=== PATIENT | male | born 1975 | race African-American/Black ===

== ENCOUNTER → 2016-03-15 | Outpatient (CLI) | payer OTHER ==
[2016-03-15 14:49] LABS: ANION GAP 12 (5-19); BLOOD UREA NITROGEN 18 mg/dL (7-20); CARBON DIOXIDE 28 mmol/L (22-30); CHLORIDE 102 mmol/L (98-107); CREATININE RESULT 1.04 mg/dL (0.52-1.25); GLUCOSE 82 mg/dL (75-110); POTASSIUM 4.1 mmol/L (3.6-5.0); SODIUM 142.4 mmol/L (137-145)
== END ==
LOC: CCC 13:47
DX: I10 Essential (primary) hypertension (principal)
CPT/HCPCS: 36415; 80048

== ENCOUNTER 2016-12-05 07:10 | Emergency (ER) | payer SELFPAY ==
[2016-12-05] MEDS ORDERED: PROCHLORPERAZINE EDISYLATE INJ 10 MG/2 ML VIAL IV ONE (08:14)
[2016-12-05] MEDS ORDERED: NORMAL SALINE 1000 ML 1,000 ML IV ONE (08:14)
[2016-12-05] MEDS ORDERED: ONDANSETRON HCL INJ/PF 4 MG/2 ML SDV IV ONE (08:14)
[2016-12-05] MEDS ORDERED: CLONIDINE HCL 0.2 MG TABLET PO ONE (08:16)
[2016-12-05 08:58] LABS: ANION GAP 16 (5-19); BLOOD UREA NITROGEN 12 mg/dL (7-20); CALCIUM 9.3 mg/dL (8.4-10.2); CARBON DIOXIDE 22 mmol/L (22-30); CHLORIDE 106 mmol/L (98-107); GLUCOSE 107 mg/dL (75-110); POTASSIUM 3.8 mmol/L (3.6-5.0); SODIUM 144.4 mmol/L (137-145)
--- NOTE | 2016-12-05 10:12 | ER Document Report ---
ED General - General Chief Complaint: Headache Stated Complaint: HEADACHE Time Seen by Provider: 12/05/16 08:03 TRAVEL OUTSIDE OF THE [place] IN LAST 30 DAYS: No - HPI Patient complains to provider of: Headache hypertension Notes: Patient coming in for evaluation of hypertension and headache. States hypertension ongoing for greater than a few weeks also headache ongoing for greater than a few weeks less than the left side of his head. Patient states does not take his hypertensive medications because they make him sleepy. Patient states he is on clonidine amlodipine and hydrochlorothiazide. Patient states he does not like taking pills as well. Denies any trauma denies any fevers chills nausea vomiting. Denies any significant medical issues. Patient states he does have his blood pressure medications at home. - Related Data Allergies/Adverse Reactions: No Known Allergies Allergy (Verified 12/05/16 07:19) Home Medications: Current Home Medications Hydrochlorothiazide 25 mg PO DAILY 12/05/16 [History] Past Medical History - Social History Smoking Status: Current Every Day Smoker Chew tobacco use (# tins/day): No Frequency of alcohol use: Heavy Family History: Reviewed & Not Pertinent Patient has suicidal ideation: No Patient has homicidal ideation: No - Past Medical History Cardiac Medical History: Reports: Hx Hypertension Renal/ Medical History: Denies: Hx Peritoneal Dialysis - Immunizations Immunizations up to date: Yes Hx Diphtheria, Pertussis, Tetanus Vaccination: Yes Review of Systems - Review of Systems Constitutional: Other - Hypertension headache EENT: No symptoms reported Cardiovascular: No symptoms reported Respiratory: No symptoms reported Gastrointestinal: No symptoms reported Genitourinary: No symptoms reported Male Genitourinary: No symptoms reported Musculoskeletal: No symptoms reported Skin: No symptoms reported Hematologic/Lymphatic: No symptoms reported Neurological/Psychological: No symptoms reported Physical Exam - Vital signs Vitals: Temp Pulse Resp BP Pulse Ox 98.4 F 101 H 16 175/123 H 99 12/05/16 07:17 12/05/16 07:17 12/05/16 07:17 12/05/16 07:17 12/05/16 07:17 Interpretation: Hypertensive - General General appearance: Appears well, Alert - HEENT Head: Normocephalic, Atraumatic Eyes: Normal Pupils: PERRL - Respiratory Respiratory status: No respiratory distress Chest status: Nontender Breath sounds: Normal Chest palpation: Normal - Cardiovascular Rhythm: Regular Heart sounds: Normal auscultation Murmur: No - Abdominal Inspection: Normal Distension: No distension Bowel sounds: Normal Tenderness: Nontender Organomegaly: No organomegaly - Back Back: Normal, Nontender - Extremities General upper extremity: Normal inspection, Nontender, Normal color, Normal ROM , Normal temperature General lower extremity: Normal inspection, Nontender, Normal color, Normal ROM , Normal temperature, Normal weight bearing. 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 The patient is neurologically intact. Given the extremely low risk of these diagnoses further testing and evaluation for these possibilities does not appear to be indicated at this time. The patient has been instructed to return if the symptoms worsen or change in any way.. Patient was given his first dose of clonidine here. Improvement of his blood pressure. Patient was given Compazine and Zofran with improvement of his headache. Patient was educated about hypertension controlled to avoid stroke dialysis renal failure heart attack. Patient states an understanding states he will start taking his medication when he returns home. We will give Compazine for headache and nausea control. - Vital Signs Vital signs: Temp Pulse Resp BP Pulse Ox 98.4 F 103 H 16 154/106 H 97 12/05/16 08:06 12/05/16 08:06 12/05/16 10:30 12/05/16 10:30 12/05/16 10:30 - Laboratory Result Diagrams: 12/05/16 08:35 Discharge - Discharge Clinical Impression: Headache Qualifiers: Headache type: unspecified Headache chronicity pattern: unspecified pattern Intractability: not intractable Qualified Code(s): R51 - Headache Condition: Good Disposition: HOME, SELF-CARE Instructions: Headache ([facility]), High Blood Pressure, Requiring Treatment ([facility]) Additional Instructions: Please take your blood pressure medication at home to prevent serious disease. Uncontrolled hypertension will lead to stroke heart attack and kidney failure which would require dialysis. Please follow-up with your primary care physician. I will give you a medication called Compazine that will help out with your headaches he may also take Tylenol and Motrin. Prescriptions: Prochlorperazine Maleate [Compazine] 5 mg PO Q6 #20 tablet Forms: Return to Work
[2016-12-05 10:38] VITALS: BP 154/106
== END 2016-12-05 10:38 | disposition home or self-care (01) ==
LOC: ER 07:10
DX: R51 Headache (principal); I10 Essential (primary) hypertension; Z79.899 Other long term (current) drug therapy; F17.200 Nicotine dependence, unspecified, uncomplicated
CPT/HCPCS: 99284; 96361; 96374; 96375; 36415; 80048; J0780; J2405; J7030

== ENCOUNTER → 2018-04-21 | Outpatient (CLI) | payer OTHER ==
[2018-04-21 13:23] LABS: ABSOLUTE BASOPHILS # (AUTO) 0.1 10^3/uL (0.0-0.2); ABSOLUTE EOSINOPHILS # (AUTO) 0.2 10^3/uL (0.0-0.6); ABSOLUTE LYMPHOCYTES (AUTO) 2.5 10^3/uL (0.5-4.7); TOTAL CELLS COUNTED % (AUTO) 100 %
[2018-04-21 13:27] LABS: ALANINE AMINOTRANSFERASE 39 U/L (21-72); ALBUMIN 4.3 g/dL (3.5-5.0); ALKALINE PHOSPHATASE 86 U/L (38-126); ANION GAP 8 (5-19); ASPARTATE AMINO TRANSFERASE 28 U/L (17-59); BILIRUBIN,DIRECT 0.2 mg/dL (0.0-0.4); BILIRUBIN,TOTAL 0.7 mg/dL (0.2-1.3); BLOOD UREA NITROGEN 18 mg/dL (7-20); CARBON DIOXIDE 28 mmol/L (22-30); CHLORIDE 104 mmol/L (98-107); CHOLESTEROL 284.85 mg/dL (0-200); GLUCOSE 98 mg/dL (75-110); POTASSIUM 4.2 mmol/L (3.6-5.0); SODIUM 139.5 mmol/L (137-145); TOTAL PROTEIN 7.3 g/dL (6.3-8.2); TRIGLYCERIDES 289 mg/dL (<150)
[2018-04-21 13:38] LABS: ABSOLUTE MONOCYTES (AUTO) 1.2 10^3/uL (0.1-1.4); ABSOLUTE NEUT (AUTO) 7.7 10^3/uL (1.7-8.2); BASOPHILS % (AUTO) 0.6 % (0-2); DIRECT LDL 178 mg/dL (<100); EOSINOPHILS % (AUTO) 1.5 % (0-6); HEMATOCRIT 48.5 % (37.9-51.0); HEMOGLOBIN 17.3 g/dL (13.5-17.0); LYMPHOCYTES % (AUTO) 21.7 % (13-45); MEAN CORPUSCULAR HEMOGLOBIN 32.2 pg (27.0-33.4); MEAN CORPUSCULAR HGB CONC 35.7 g/dL (32.0-36.0); MEAN CORPUSCULAR VOLUME 90 fl (80-97); MONOCYTES % (AUTO) 9.9 % (3-13); PLATELET COUNT 214 10^3/uL (150-450); RED BLOOD COUNT 5.37 10^6/uL (4.35-5.55); RED CELL DISTRIBUTION WIDTH 14.2 % (11.5-14.0); SEGMENTED NEUTROPHILS % (AUTO) 66.3 % (42-78); WHITE BLOOD COUNT 11.7 10^3/uL (4.0-10.5)
[2018-04-21 13:42] LABS: VLDL CHOLESTEROL 57.8 mg/dL (10-31)
== END ==
LOC: CCC 12:25
DX: I10 Essential (primary) hypertension (principal)
CPT/HCPCS: 36415; 80053; 80061; 83036; 84443; 85025

== ENCOUNTER 2019-04-16 16:01 | Inpatient (IN) | payer SELFPAY ==
[2019-04-16] MEDS ORDERED: AMLODIPINE BESYLATE 10 MG TABLET PO ONE (16:25)
[2019-04-16] MEDS ORDERED: HYDROCHLOROTHIAZIDE 25 MG TABLET PO ONE (16:25)
--- NOTE | 2019-04-16 16:27 | ER Document Report ---
ED Medical Screen (RME) - General Chief Complaint: Blood Pressure Problem Stated Complaint: HEADACHE Time Seen by Provider: 04/16/19 16:21 Primary Care Provider: [facility] [Primary Care Provider] - Follow up as needed Notes: HPI: 43-year-old male with history of hypertension presenting for severe hypertension with shortness of breath and headache. Patient states he was out of town working and ran out of his blood pressure medications. He has been out of his medications for 3 weeks. Patient states he is not specifically sure what he takes, noting that he believes he takes amlodipine and hydrochlorothiazide and perhaps one other blood pressure medication. He states he began having increasing generalized headache and shortness of breath no chest pain in the last 24 hours. No weakness numbness or tingling in the extremities I have greeted and performed a rapid initial assessment of this patient. A comprehensive ED assessment and evaluation of the patient, analysis of test results and completion of the medical decision making process will be conducted by additional ED providers PHYSICAL EXAMINATION: GENERAL: Well-appearing, well-nourished and in moderate acute distress. HEAD: Atraumatic, normocephalic. EYES: sclera anicteric, conjunctiva are normal. ENT: Moist mucous membranes. NECK: Normal range of motion LUNGS: Normal work of breathing, clear to auscultation HEART: 2+ radial pulses bilaterally, mild tachycardia ABD: limited by positioning for exam in triage. EXTREMITIES: no pitting or edema. No cyanosis. NEUROLOGICAL: No focal neurological deficits. Moves all extremities spontaneously and on command. Strength equal 5/5 bilateral upper and lower extremities, gait is normal PSYCH: Normal mood, normal affect. SKIN: Warm, Dry, normal turgor, no rashes or lesions noted. TRAVEL OUTSIDE OF THE [place] IN LAST 30 DAYS: No - Related Data Allergies/Adverse Reactions: No Known Allergies Allergy (Verified 12/05/16 07:19) Past Medical History - Past Medical History Cardiac Medical History: Reports: Hx Hypertension Renal/ Medical History: Denies: Hx Peritoneal Dialysis - Immunizations Immunizations up to date: Yes Hx Diphtheria, Pertussis, Tetanus Vaccination: Yes Physical Exam - Vital signs Vitals: Temp Pulse Resp BP Pulse Ox 98.6 F 108 H 18 208/151 H 96 04/16/19 16:18 04/16/19 16:18 04/16/19 16:18 04/16/19 16:18 04/16/19 16:18 Course - Vital Signs Vital signs: Temp Pulse Resp BP Pulse Ox 98.6 F 108 H 18 208/151 H 96 04/16/19 16:18 04/16/19 16:18 04/16/19 16:18 04/16/19 16:18 04/16/19 16:18 Doctor's Discharge - Discharge Referrals: [facility] [Primary Care Provider] - Follow up as needed
--- NOTE | 2019-04-16 16:55 | RADIOLOGY REPORT (SQ) ---
EXAM DESCRIPTION: CHEST SINGLE VIEW COMPLETED DATE/TIME: 04/16/2019 4:37 pm REASON FOR STUDY: SOB/HTN COMPARISON: PA and lateral views of the chest from 05/26/2015. EXAM PARAMETERS: NUMBER OF VIEWS: One view. TECHNIQUE: An AP view of the chest was obtained. RADIATION DOSE: NA LIMITATIONS: None. FINDINGS: LUNGS AND PLEURA: Peribronchial cuffing without a superimposed consolidation, sizeable ple ural effusion or pneumothorax. MEDIASTINUM AND HILAR STRUCTURES: No mediastinal or hilar contour abnormality. HEART AND VASCULAR STRUCTURES: The cardiac silhouette and pulmonary vasculature are within normal de [place] its. BONES: No acute findings. HARDWARE: None in the chest. OTHER: No other finding. IMPRESSION: Peribronchial cuffing in the setting of low inspiratory lung volumes and without a super imposed consolidation, sizeable pleural effusion or pneumothorax. Correlation with clinical findings for signs and symptoms of mild interstitial edema is recommended. TECHNICAL DOCUMENTATION: JOB ID: [id number] 2010 [employer]- All Rights Reserved Reading location - IP/workstation name: [email or web address]
[2019-04-16 17:06] LABS: ABSOLUTE BASOPHILS # (AUTO) 0.1 10^3/uL (0.0-0.2); ABSOLUTE EOSINOPHILS # (AUTO) 0.2 10^3/uL (0.0-0.6); ABSOLUTE LYMPHOCYTES (AUTO) 2.8 10^3/uL (0.5-4.7); ABSOLUTE MONOCYTES (AUTO) 1.5 10^3/uL (0.1-1.4); ABSOLUTE NEUT (AUTO) 9.3 10^3/uL (1.7-8.2); BASOPHILS % (AUTO) 0.7 % (0-2); EOSINOPHILS % (AUTO) 1.4 % (0-6); HEMATOCRIT 52.7 % (37.9-51.0); HEMOGLOBIN 18.6 g/dL (13.5-17.0); LYMPHOCYTES % (AUTO) 20.1 % (13-45); MEAN CORPUSCULAR HEMOGLOBIN 32.5 pg (27.0-33.4); MEAN CORPUSCULAR HGB CONC 35.3 g/dL (32.0-36.0); MEAN CORPUSCULAR VOLUME 92 fl (80-97); MONOCYTES % (AUTO) 10.6 % (3-13); PLATELET COUNT 218 10^3/uL (150-450); RED BLOOD COUNT 5.73 10^6/uL (4.35-5.55); RED CELL DISTRIBUTION WIDTH 14.2 % (11.5-14.0); SEGMENTED NEUTROPHILS % (AUTO) 67.2 % (42-78); TOTAL CELLS COUNTED % (AUTO) 100 %; WHITE BLOOD COUNT 13.9 10^3/uL (4.0-10.5)
[2019-04-16 17:23] LABS: ALKALINE PHOSPHATASE 85 U/L (38-126); ANION GAP 10 (5-19); ASPARTATE AMINO TRANSFERASE 30 U/L (17-59); BILIRUBIN,DIRECT 0.4 mg/dL (0.0-0.4); BILIRUBIN,TOTAL 0.7 mg/dL (0.2-1.3); BLOOD UREA NITROGEN 23 mg/dL (7-20); CALCIUM 9.6 mg/dL (8.4-10.2); CARBON DIOXIDE 30 mmol/L (22-30); CHLORIDE 99 mmol/L (98-107); GLUCOSE 92 mg/dL (75-110); POTASSIUM 3.9 mmol/L (3.6-5.0); TOTAL PROTEIN 7.5 g/dL (6.3-8.2)
[2019-04-16] MEDS ORDERED: METOPROLOL SUCCINATE 25 MG TAB.SR.24H PO ONE (17:57)
--- NOTE | 2019-04-16 19:43 | EKG REPORT ---
SEVERITY:- ABNORMAL ECG - SINUS TACHYCARDIA DIMPLE, CONSIDER BIATRIAL ABNORMALITIES PROBABLE LEFT VENTRICULAR HYPERTROPHY BORDERLINE PROLONGED QT INTERVAL : Confirmed by: Kelle Campos MD 16-Apr-2019 19:41:48
[2019-04-16] MEDS ORDERED: ACETAMINOPHEN 325 MG TABLET PO ONE (19:53)
--- NOTE | 2019-04-16 20:03 | ER Document Report ---
ED Blood Pressure Problem - General Chief Complaint: High Blood Pressure Stated Complaint: HEADACHE Time Seen by Provider: 04/16/19 16:21 Primary Care Provider: [facility] [Primary Care Provider] - Follow up as needed Mode of Arrival: Ambulatory Information source: Patient Notes: Patient is a 43-year-old -Russian male presenting to the emergency department chief complaint of headache and elevated blood pressure. Patient states he has been out of his blood pressure medicine for about a week. Patient states he had been traveling because of work and ran out of the medicine. Patient is here because he went to the clinic to obtain refills and they sent him here because his blood pressure was so high. Patient is alert and oriented answers all questions appropriately shows no significant neurologic deficit secondary to accelerated hypertension. TRAVEL OUTSIDE OF THE [place] IN LAST 30 DAYS: No - HPI Patient complains to provider of: High blood pressure Onset: Last week Onset/Duration: Gradual, Worse Quality of pain: Throbbing Severity: Moderate Pain Level: 3 Problem is: Chronic problem Pt currently taking medication for problem: Yes Associated symptoms: Headache Similar symptoms previously: Yes Recently seen / treated by doctor: Yes - Related Data Allergies/Adverse Reactions: No Known Allergies Allergy (Verified 12/05/16 07:19) Home Medications: Hctz, Amlodipine Past Medical History - General Information source: Patient, Relative - Social History Smoking Status: Current Every Day Smoker Cigarette use (# per day): Yes Smoking Education Provided: Yes Frequency of alcohol use: Rare Drug Abuse: None Lives with: Spouse/Significant other Family History: Reviewed & Not Pertinent Patient has suicidal ideation: No Patient has homicidal ideation: No - Past Medical History Cardiac Medical History: Reports: Hx Hypertension Renal/ Medical History: Denies: Hx Peritoneal Dialysis - Immunizations Immunizations up to date: Yes Hx Diphtheria, Pertussis, Tetanus Vaccination: Yes Review of Systems - Review of Systems Notes: REVIEW OF SYSTEMS: CONSTITUTIONAL : Denies fever, chills, or sweats. Denies recent illness. EENT: Denies eye, ear, throat, or mouth pain or symptoms. Denies nasal or sinus congestion. CARDIOVASCULAR: Denies chest pain. RESPIRATORY: Denies cough, cold, or chest congestion. Denies shortness of breath, difficulty breathing, or wheezing. GASTROINTESTINAL: Denies abdominal pain. Denies nausea, vomiting, or diarrhea. Denies constipation. GENITOURINARY: Denies difficulty urinating, painful urination, burning, frequency, or blood in urine. MUSCULOSKELETAL: Denies neck or back pain or joint pain or swelling. SKIN: Denies rash or skin lesions. HEMATOLOGIC : Denies easy bruising or bleeding. NEUROLOGICAL: Per HPI PSYCHIATRIC: Denies suicidal or homicidal ideations 10 Systems are negative unless otherwise specified above Physical Exam - Vital signs Vitals: Temp Pulse Resp BP Pulse Ox 98.6 F 108 H 18 208/151 H 96 04/16/19 16:18 04/16/19 16:18 04/16/19 16:18 04/16/19 16:18 04/16/19 16:18 - Notes Notes: PHYSICAL EXAMINATION: GENERAL: Patient is alert and oriented in discomfort secondary to headache HEAD: Atraumatic, normocephalic. EYES: Pupils equal round and reactive to light, extraocular movements intact, sclera anicteric, conjunctiva are normal. ENT: nares patent, oropharynx clear without exudates. Moist mucous membranes. NECK: Normal range of motion, supple without lymphadenopathy, no appreciable JVD LUNGS: Lungs clear to auscultation bilaterally and equal. No wheezes rales or rhonchi. HEART: Regular rate and rhythm without murmurs ABDOMEN: Soft, nontender, normal bowel sounds. No guarding, no rebound. No masses appreciated. EXTREMITIES: Active full range of motion, no pitting or edema. No cyanosis. 2+ pulses x4 NEUROLOGICAL: Patient is complaining of a headache but is otherwise neurologically intact answers questions appropriately follows commands appropriately is alert and oriented x3 Amelia Coma Scale of 15 cranial nerves II through XII are grossly intact. SKIN: Warm, Dry, and intact. Normal turgor, no rashes or lesions noted. Course - Re-evaluation Re-evalutation: 04/16/19 20:08 Patient has been reevaluated several times while in the emergency department. 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 Patient was given his normal doses of medication without significant blood pressure response. Patient was also given a dose of Lopressor and reevaluated. Patient's blood pressure has continued to increase as opposed to decrease. 04/16/19 20:19 I was able to speak with the hospitalist he is agreeable with admission. He is requesting 2 mg IV Ativan. Patient will be admitted in stable condition for accelerated hypertension and headache. Patient also has been found to have a slightly elevated troponin. Repeat EKG demonstrates no morphology change no ST elevation. - Vital Signs Vital signs: Temp Pulse Resp BP Pulse Ox 98.6 F 104 H 26 H 203/137 H 98 04/16/19 16:18 04/16/19 17:23 04/16/19 20:01 04/16/19 20:01 04/16/19 20:01 - Laboratory Result Diagrams: 04/16/19 16:40 04/16/19 16:40 Laboratory results interpreted by me: 04/16/19 04/16/19 16:40 16:40 WBC 13.9 H RBC 5.73 H Hgb 18.6 H Hct 52.7 H RDW 14.2 H Absolute Neuts (auto) 9.3 H Absolute Monos (auto) 1.5 H BUN 23 H Creatinine 2.28 H Est GFR ( Amer) 38 L Est GFR (MDRD) Non-Af 32 L - Diagnostic Test Radiology reviewed: Reports reviewed - EKG Interpretation by Me EKG shows normal: Sinus rhythm Rate: Tachycardia Rhythm: NSR Voltage: Consistant with LVH When compared to previous EKG there are: No significant change Discharge - Discharge Clinical Impression: Accelerated hypertension, Elevated troponin Headache Qualifiers: Headache type: unspecified Headache chronicity pattern: acute headache Intrac tability: not intractable Qualified Code(s): R51 - Headache Condition: Fair Disposition: ADMITTED OBSERVATION Admitting Provider: Leo (Hospitalist) Unit Admitted: IMCU Referrals: [facility] [Primary Care Provider] - Follow up as needed
[2019-04-16] MEDS ORDERED: LORAZEPAM INJ 2 MG/1 ML VIAL IV ONE (20:14)
[2019-04-16] MEDS ORDERED: MAGNESIUM HYDROXIDE SUSP 30 ML UDCUP PO PRN (20:15)
[2019-04-16] MEDS ORDERED: MAG HYDROX/AL HYDROX/SIMETH SUSP 30 ML UDCUP PO PRN (20:15)
[2019-04-16] MEDS ORDERED: ASPIRIN 81 MG TABLET, CHEWABLE PO ONE (21:16)
[2019-04-16 21:34] LABS: URINE BARBITURATES SCREEN NEGATIVE; URINE BENZODIAZEPINES SCREEN NEGATIVE; URINE COCAINE SCREEN NEGATIVE; URINE MARIJUANA (THC) SCREEN NEGATIVE; URINE METHADONE SCREEN NEGATIVE; URINE PHENCYCLIDINE SCREEN NEGATIVE
[2019-04-16 21:38] LABS: URINE AMPHETAMINES SCREEN NEGATIVE
[2019-04-16] MEDS ORDERED: NITROGLYCERIN 2% OINTMENT 1 GM PACKET TP ONE (22:37)
[2019-04-16] MEDS ORDERED: FUROSEMIDE INJ/PF 40 MG/4 ML SDV IV ONE (22:39)
[2019-04-16] MEDS ORDERED: NITROGLYCERIN 2% OINTMENT 1 GM PACKET ONE (22:42)
[2019-04-16] MEDS ORDERED: FUROSEMIDE INJ/PF 40 MG/4 ML SDV ONE (22:43)
[2019-04-16] MEDS: THIAMINE HCL 100 MG, FOLIC ACID 1 MG in NORMAL SALINE 250 ML IV SCH (22:51)
[2019-04-16] MEDS: HEPARIN SOD (PORCINE) 5,000 UNIT/ML 1 ML VIAL SUBCUT SCH (22:51)
[2019-04-16] MEDS: METOPROLOL TARTRATE PF/INJ 5 MG/5 ML SDV IV PRN (23:10)
[2019-04-17] MEDS: HYDRALAZINE HCL INJ/PF 20 MG/1 ML SDV IV PRN ×2 (00:08→18:10)
--- NOTE | 2019-04-17 04:41 | PDOC H&P ---
History of Present Illness Admission Date/PCP: 04/16/19 20:32 [facility] Patient complains of: Elevated blood pressure History of Present Illness: ASAEL KOENIG is a 43 year old male with a past medical history of obesity, hypertension and tobacco dependence. He presents by referral from the [facility] after finding him with a blood pressure in the 200 systolic range associated with a headache. Patient had run out of his regular medications. In the emergency department he is found to have a blood pressure of 210/115 and a pulse of 106 his labs revealed acute renal failure with a creatinine of 2.2 and elevated troponin of 0.225. He denies chest pain nausea vomiting. He receives amlodipine, Lopressor and Tylenol for his headache and referred to the hospitalist for admission. Past Medical History Cardiac Medical History: Reports: Hypertension Psychiatric Medical History: Reports: Tobacco Dependency Past Surgical History Past Surgical History: Reports: None Social History Information Source: Patient, [facility] Records Lives with: Spouse/Significant other Smoking Status: Current Every Day Smoker Cigarettes Packs Per Day: 0.5 Frequency of Alcohol Use: Social Drugs: None - Advance Directive Resuscitation Status: Full Code Family History Family History: DM, Hyperlipidemia Parental Family History Reviewed: Yes Children Family History Reviewed: Yes Sibling(s) Family History Reviewed.: Yes Medication/Allergy Home Medications: Hydrochlorothiazide 25 mg PO DAILY 12/05/16 Prochlorperazine Maleate [Compazine] 5 mg PO Q6 #20 tablet 12/05/16 Allergies/Adverse Reactions: No Known Allergies Allergy (Verified 12/05/16 07:19) Review of Systems Constitutional: PRESENT: as per HPI, fatigue. ABSENT: chills, fever(s), headache(s), weight gain, weight loss Eyes: ABSENT: visual disturbances Ears: ABSENT: hearing changes Cardiovascular: ABSENT: chest pain, dyspnea on exertion, edema, orthropnea, palpitations Respiratory: ABSENT: cough, hemoptysis Gastrointestinal: ABSENT: abdominal pain, constipation, diarrhea, hematemesis, hematochezia, nausea, vomiting Genitourinary: ABSENT: dysuria, hematuria Musculoskeletal: ABSENT: joint swelling Integumentary: ABSENT: rash, wounds Neurological: ABSENT: abnormal gait, abnormal speech, confusion, dizziness, focal weakness, syncope Psychiatric: ABSENT: anxiety, depression, homidical ideation, suicidal ideation Endocrine: ABSENT: cold intolerance, heat intolerance, polydipsia, polyuria Hematologic/Lymphatic: ABSENT: easy bleeding, easy bruising Physical Exam Vital Signs: Temp Pulse Resp BP Pulse Ox 98.6 F 104 H 15 168/114 H 94 04/16/19 16:18 04/16/19 17:23 04/17/19 01:35 04/17/19 01:31 04/17/19 01:35 Intake & Output 04/15/19 04/16/19 04/17/19 11:59 11:59 11:59 Intake Total 251.2 Balance 251.2 Weight 112.4 kg General appearance: PRESENT: cooperative, mild distress, obese, well-developed, well-nourished Head exam: PRESENT: atraumatic, normocephalic Eye exam: PRESENT: conjunctiva pink, EOMI, PERRLA. ABSENT: scleral icterus Ear exam: PRESENT: normal external ear exam Mouth exam: PRESENT: moist, tongue midline Neck exam: ABSENT: carotid bruit, JVD, lymphadenopathy, thyromegaly Respiratory exam: PRESENT: clear to auscultation carito. ABSENT: rales, rhonchi, wheezes Cardiovascular exam: PRESENT: gallop, RRR. ABSENT: diastolic murmur, rubs, systolic murmur Pulses: PRESENT: normal dorsalis pedis pul Vascular exam: PRESENT: normal capillary refill GI/Abdominal exam: PRESENT: normal bowel sounds, soft. ABSENT: distended, guarding, mass, organolmegaly, rebound, tenderness Rectal exam: PRESENT: deferred Extremities exam: PRESENT: full ROM. ABSENT: calf tenderness, clubbing, pedal edema Neurological exam: PRESENT: alert, awake, oriented to person, oriented to place, oriented to time, oriented to situation, CN II-XII grossly intact. ABSENT: motor sensory deficit Psychiatric exam: PRESENT: appropriate affect, normal mood. ABSENT: homicidal ideation, suicidal ideation Skin exam: PRESENT: dry, intact, warm. ABSENT: cyanosis, rash Results Laboratory Results: 04/16/19 16:40 04/16/19 16:40 04/16/19 04/16/19 04/16/19 16:40 16:40 19:30 WBC 13.9 H RBC 5.73 H Hgb 18.6 H Hct 52.7 H MCV 92 MCH 32.5 MCHC 35.3 RDW 14.2 H Plt Count 218 Seg Neutrophils % 67.2 Sodium 138.6 Potassium 3.9 Chloride 99 Carbon Dioxide 30 Anion Gap 10 BUN 23 H Creatinine 2.28 H Est GFR ( Amer) 38 L Glucose 92 Calcium 9.6 Total Bilirubin 0.7 AST 30 Alkaline Phosphatase 85 Total Protein 7.5 Albumin 4.0 TSH 2.97 04/16/19 04/16/19 04/16/19 16:40 19:09 19:30 Creatine Kinase 77 Troponin I 0.227 0.240 Impressions: Chest X-Ray 04/16/19 16:25 IMPRESSION: Peribronchial cuffing in the setting of low inspiratory lung volumes and without a superimposed consolidation, sizeable pleural effusion or pneumothorax. Correlation with clinical findings for signs and symptoms of mild interstitial edema is recommended. Assessment and Plan - Diagnosis (1) Hypertensive urgency Is this a current diagnosis for this admission?: Yes Plan: IV Lopressor, IV hydralazine, Nitropaste and Lasix. Patient cannot recall his former outpatient medications. He no longer complains of headache. (2) Acute renal failure Is this a current diagnosis for this admission?: Yes Plan: Likely secondary to uncontrolled hypertension. Avoid nephrotoxic meds and doses, optimize pressure follow-up chemistry (3) Elevated troponin Is this a current diagnosis for this admission?: Yes Plan: Likely troponin leak secondary to uncontrolled hypertension. Follow-up serial cardiac enzymes. (4) Headache Qualifiers: Headache type: unspecified Headache chronicity pattern: acute headache Intractability: not intractable Qualified Code(s): R51 - Headache Is this a current diagnosis for this admission?: Yes Plan: Secondary to #1, optimize pressure. (5) Polycythemia Is this a current diagnosis for this admission?: Yes Plan: Likely reactive secondary to smoking, follow-up repeat CBC. Consider hematology consult - Time Time Spent with patient: 25-34 minutes - Inpatient Certification Medical Necessity: Need Close Monitoring Due to Risk of Patient Decompensation
[2019-04-17] MEDS: HEPARIN SOD (PORCINE) 5,000 UNIT/ML 1 ML VIAL SUBCUT SCH ×4 (05:32→22:00)
[2019-04-17] MEDS: METOPROLOL TARTRATE PF/INJ 5 MG/5 ML SDV IV PRN ×2 (05:32→13:04)
[2019-04-17] MEDS ORDERED: HYDRALAZINE HCL 50 MG TABLET PO SCH (06:00)
[2019-04-17 06:08] LABS: ABSOLUTE BASOPHILS # (AUTO) 0.1 10^3/uL (0.0-0.2); ABSOLUTE EOSINOPHILS # (AUTO) 0.3 10^3/uL (0.0-0.6); ABSOLUTE MONOCYTES (AUTO) 1.1 10^3/uL (0.1-1.4); ABSOLUTE NEUT (AUTO) 8.2 10^3/uL (1.7-8.2); BASOPHILS % (AUTO) 0.8 % (0-2); EOSINOPHILS % (AUTO) 2.2 % (0-6); HEMATOCRIT 53.1 % (37.9-51.0); HEMOGLOBIN 18.3 g/dL (13.5-17.0); LYMPHOCYTES % (AUTO) 17.3 % (13-45); MEAN CORPUSCULAR HEMOGLOBIN 31.8 pg (27.0-33.4); MEAN CORPUSCULAR HGB CONC 34.5 g/dL (32.0-36.0); MEAN CORPUSCULAR VOLUME 92 fl (80-97); MONOCYTES % (AUTO) 9.4 % (3-13); PLATELET COUNT 196 10^3/uL (150-450); RED BLOOD COUNT 5.76 10^6/uL (4.35-5.55); RED CELL DISTRIBUTION WIDTH 14.4 % (11.5-14.0); SEGMENTED NEUTROPHILS % (AUTO) 70.3 % (42-78); TOTAL CELLS COUNTED % (AUTO) 100 %; WHITE BLOOD COUNT 11.7 10^3/uL (4.0-10.5)
[2019-04-17 06:24] LABS: ANION GAP 10 (5-19); BLOOD UREA NITROGEN 22 mg/dL (7-20); CALCIUM 9.4 mg/dL (8.4-10.2); CARBON DIOXIDE 27 mmol/L (22-30); CHLORIDE 100 mmol/L (98-107); CHOLESTEROL 277.01 mg/dL (0-200); GLUCOSE 125 mg/dL (75-110); POTASSIUM 3.4 mmol/L (3.6-5.0); TRIGLYCERIDES 317 mg/dL (<150)
[2019-04-17 06:35] LABS: DIRECT LDL 217 mg/dL (<100)
[2019-04-17 06:43] LABS: VLDL CHOLESTEROL 63.4 mg/dL (10-31)
--- NOTE | 2019-04-17 09:18 | PDOC PROGRESS REPORT ---
Subjective Progress Note for:: 04/17/19 Subjective:: 43 year old male with a past medical history of obesity, hypertension and tobacco dependence. [facility] after finding him with a blood pressure in the 200 systolic range associated with a headache. Patient had run out of his regular medications. In the emergency department he is found to have a blood pressure of 210/115 and a pulse of 106 his labs revealed acute renal failure with a creatinine of 2.2 and elevated troponin of 0.225. He denies chest pain nausea vomiting. He receives amlodipine, Lopressor and Tylenol for his headache and referred to the hospitalist for admission. 04/17/1947-36-duoj-old male with history of obesity, hypertension, tobacco abuse noncompliant with medications came to the emergency room with systolic blood pressure more than 200. Initial troponins are elevated. Most likely seco ndarytype 2 myocardial ischemia comfortably in the bed communicating well. Not in distress. Reason For Visit: HTN URGENCY ARF Physical Exam Vital Signs: Temp Pulse Resp BP Pulse Ox 98.1 F 90 15 158/127 H 96 04/17/19 05:15 04/17/19 05:08 04/17/19 09:00 04/17/19 08:31 04/17/19 09:00 Intake & Output 04/16/19 04/17/19 04/18/19 06:59 06:59 06:59 Intake Total 251.2 Balance 251.2 Weight 112.4 kg General appearance: PRESENT: no acute distress Head exam: PRESENT: atraumatic Eye exam: PRESENT: PERRLA Ear exam: PRESENT: normal external ear exam Mouth exam: PRESENT: neck supple Neck exam: ABSENT: carotid bruit, JVD, lymphadenopathy, thyromegaly Respiratory exam: PRESENT: clear to auscultation carito. ABSENT: rales, rhonchi, wheezes Cardiovascular exam: PRESENT: RRR. ABSENT: diastolic murmur, rubs, systolic murmur Pulses: PRESENT: normal dorsalis pedis pul GI/Abdominal exam: PRESENT: normal bowel sounds, soft. ABSENT: distended, guarding, mass, organolmegaly, rebound, tenderness Rectal exam: PRESENT: deferred Extremities exam: PRESENT: full ROM. ABSENT: calf tenderness, clubbing, pedal edema Neurological exam: PRESENT: alert, awake, oriented to person, oriented to place, oriented to time, oriented to situation, CN II-XII grossly intact. ABSENT: motor sensory deficit Psychiatric exam: PRESENT: appropriate affect, normal mood. ABSENT: homicidal ideation, suicidal ideation Results Laboratory Results: 04/17/19 05:20 04/17/19 05:20 04/16/19 04/16/19 04/16/19 16:40 16:40 19:30 WBC 13.9 H RBC 5.73 H Hgb 18.6 H Hct 52.7 H MCV 92 MCH 32.5 MCHC 35.3 RDW 14.2 H Plt Count 218 Seg Neutrophils % 67.2 Sodium 138.6 Potassium 3.9 Chloride 99 Carbon Dioxide 30 Anion Gap 10 BUN 23 H Creatinine 2.28 H Est GFR ( Amer) 38 L Glucose 92 Calcium 9.6 Total Bilirubin 0.7 AST 30 Alkaline Phosphatase 85 Total Protein 7.5 Albumin 4.0 Triglycerides Cholesterol LDL Cholesterol Direct VLDL Cholesterol HDL Cholesterol TSH 2.97 04/17/19 04/17/19 05:20 05:20 WBC 11.7 H RBC 5.76 H Hgb 18.3 H Hct 53.1 H MCV 92 MCH 31.8 MCHC 34.5 RDW 14.4 H Plt Count 196 Seg Neutrophils % 70.3 Sodium 136.9 L Potassium 3.4 L Chloride 100 Carbon Dioxide 27 Anion Gap 10 BUN 22 H Creatinine 2.19 H Est GFR ( Amer) 40 L Glucose 125 H Calcium 9.4 Total Bilirubin AST Alkaline Phosphatase Total Protein Albumin Triglycerides 317 H Cholesterol 277.01 H LDL Cholesterol Direct 217 H VLDL Cholesterol 63.4 H HDL Cholesterol 35 L TSH 04/16/19 04/16/19 04/16/19 16:40 19:09 19:30 Creatine Kinase 77 Troponin I 0.227 0.240 04/17/19 05:20 Creatine Kinase Troponin I 0.178 Impressions: Chest X-Ray 04/16/19 16:25 IMPRESSION: Peribronchial cuffing in the setting of low inspiratory lung volumes and without a superimposed consolidation, sizeable pleural effusion or pneumothorax. Correlation with clinical findings for signs and symptoms of mild interstitial edema is recommended. Assessment and Plan - Diagnosis (1) Hypertensive urgency Is this a current diagnosis for this admission?: Yes Plan: IV Lopressor, IV hydralazine, Nitropaste and Lasix. Patient cannot recall his former outpatient medications. He no longer complains of headache. 2820-patient came in with hypertensive urgency secondary to noncompliance to medications. Patient is presently on hydralazine 50 mg p.o. every 8 hours, a mlodipine 10 mg daily, IV hydralazine 10 mg every 6 hours PRN for systolic blood pressure more than 160. Plan is to increase hydralazine 200 mg p.o. 3 times daily from today. Diet exercise weight loss compliance with medications discussed with the patient. (2) Acute renal failure Is this a current diagnosis for this admission?: Yes Plan: Likely secondary to uncontrolled hypertension. Avoid nephrotoxic meds and doses, optimize pressure follow-up chemistry 04/17/2019-patient came in with acute renal failure likely secondary to uncontrolled hypertension. We do not have a baseline creatinine. Plan is to repeat the labs tomorrow. (3) Elevated troponin Is this a current diagnosis for this admission?: Yes Plan: Likely troponin leak secondary to uncontrolled hypertension. Follow-up serial cardiac enzymes. 04/17/2019-elevated troponins most likely secondary to type II myocardial ischemia. Troponin is trending down. Latest troponin is 0.178. No complaints of chest pains this morning. (4) Headache Qualifiers: Headache type: unspecified Headache chronicity pattern: acute headache Intractability: not intractable Qualified Code(s): R51 - Headache Is this a current diagnosis for this admission?: Yes Plan: Secondary to #1, optimize pressure. 04/17/19 patient came in with complaints of headaches now resolved. (5) Polycythemia Is this a current diagnosis for this admission?: Yes Plan: Likely reactive secondary to smoking, follow-up repeat CBC. Consider hematology consult 2819-polycythemia most likely secondary to chronic daily day smoking. (6) Tobacco abuse Is this a current diagnosis for this admission?: No Plan: 04/17/2019-patient complaining of chronic daily day smoking. To offer nicotine patches. Smoking counseling was provided for more than 20 minutes. He strongly advised to quit smoking. (7) Obesity (BMI 30-39.9) Is this a current diagnosis for this admission?: No Plan: 04/17/2019-patient BMI is more than 38 diet exercise weight loss lifestyle modifications discussed with the patient.
[2019-04-17] MEDS: DOCUSATE SODIUM 100 MG CAPSULE PO SCH ×2 (10:11→18:10)
--- NOTE | 2019-04-17 13:54 | EKG REPORT ---
SEVERITY:- ABNORMAL ECG - SINUS RHYTHM BIATRIAL ABNORMALITIES LVH WITH SECONDARY REPOLARIZATION ABNORMALITY CONSIDER ANTERIOR INFARCT BORDERLINE PROLONGED QT INTERVAL : Confirmed by: Kelle Campos MD 17-Apr-2019 13:53:26
[2019-04-17] MEDS: HYDRALAZINE HCL 50 MG TABLET PO SCH ×2 (14:31→21:42)
[2019-04-17] MEDS: ACETAMINOPHEN 325 MG TABLET PO PRN (20:09)
[2019-04-17] MEDS: METOPROLOL TARTRATE 50 MG TABLET PO SCH ×2 (20:10→21:45)
[2019-04-17] MEDS: THIAMINE HCL 100 MG, FOLIC ACID 1 MG in NORMAL SALINE 250 ML IV SCH (21:42)
[2019-04-18 06:01] LABS: ABSOLUTE BASOPHILS # (AUTO) 0.1 10^3/uL (0.0-0.2); ABSOLUTE EOSINOPHILS # (AUTO) 0.2 10^3/uL (0.0-0.6); ABSOLUTE LYMPHOCYTES (AUTO) 2.5 10^3/uL (0.5-4.7); ABSOLUTE NEUT (AUTO) 8.9 10^3/uL (1.7-8.2); BASOPHILS % (AUTO) 0.7 % (0-2); EOSINOPHILS % (AUTO) 1.3 % (0-6); HEMATOCRIT 50.6 % (37.9-51.0); HEMOGLOBIN 17.4 g/dL (13.5-17.0); LYMPHOCYTES % (AUTO) 19.6 % (13-45); MEAN CORPUSCULAR HEMOGLOBIN 31.8 pg (27.0-33.4); MEAN CORPUSCULAR HGB CONC 34.5 g/dL (32.0-36.0); MEAN CORPUSCULAR VOLUME 92 fl (80-97); MONOCYTES % (AUTO) 8.1 % (3-13); PLATELET COUNT 203 10^3/uL (150-450); RED BLOOD COUNT 5.48 10^6/uL (4.35-5.55); SEGMENTED NEUTROPHILS % (AUTO) 70.3 % (42-78); TOTAL CELLS COUNTED % (AUTO) 100 %; WHITE BLOOD COUNT 12.6 10^3/uL (4.0-10.5)
[2019-04-18] MEDS: HYDRALAZINE HCL 50 MG TABLET PO SCH (06:07)
[2019-04-18] MEDS: ACETAMINOPHEN 325 MG TABLET PO PRN (06:07)
[2019-04-18] MEDS: HEPARIN SOD (PORCINE) 5,000 UNIT/ML 1 ML VIAL SUBCUT SCH (06:12)
[2019-04-18 06:28] LABS: ALBUMIN 3.5 g/dL (3.5-5.0); CARBON DIOXIDE 24 mmol/L (22-30); TOTAL PROTEIN 6.4 g/dL (6.3-8.2)
[2019-04-18 06:30] LABS: ANION GAP 9 (5-19); CHLORIDE 102 mmol/L (98-107)
[2019-04-18 06:31] LABS: ALKALINE PHOSPHATASE 76 U/L (38-126); ASPARTATE AMINO TRANSFERASE 28 U/L (17-59); BILIRUBIN,DIRECT 0.1 mg/dL (0.0-0.4); BILIRUBIN,TOTAL 0.5 mg/dL (0.2-1.3); BLOOD UREA NITROGEN 31 mg/dL (7-20); CALCIUM 9.1 mg/dL (8.4-10.2); GLUCOSE 115 mg/dL (75-110); POTASSIUM 3.6 mmol/L (3.6-5.0)
[2019-04-18] MEDS ORDERED: AMLODIPINE BESYLATE 10 MG TABLET PO SCH (10:00)
[2019-04-18] MEDS ORDERED: ASPIRIN 81 MG TABLET, ENT COATED PO SCH (10:00)
[2019-04-18] MEDS: DOCUSATE SODIUM 100 MG CAPSULE PO SCH (10:44)
[2019-04-18] MEDS: METOPROLOL TARTRATE 50 MG TABLET PO SCH (10:44)
--- NOTE | 2019-04-18 11:24 | PDOC DISCHARGE SUMMARY ---
Impression - Admit/DC Date/PCP Admission Date/Primary Care Provider: 04/16/19 20:32 [facility] Discharge Date: 04/18/19 - Additional Information Resuscitation Status: Full Code Discharge Diet: Cardiac Discharge Activity: Activity As Tolerated, Balance Activity w/Rest Referrals: [facility] [Primary Care Provider] - Follow up as needed Prescriptions: Hydralazine HCl [Apresoline 50 mg Tablet] 100 mg PO Q8 #180 tablet Aspirin [Ecotrin 81 mg EC Tablet] 81 mg PO DAILY #30 tabec Atorvastatin Calcium [Lipitor 40 mg Tablet] 40 mg PO QHS #30 tablet Metoprolol Tartrate [Lopressor 50 mg Tablet] 50 mg PO Q12 #60 tablet Amlodipine Besylate [Norvasc 10 mg Tablet] 10 mg PO DAILY #30 tablet Home Medications: Acetaminophen [Tylenol 325 mg Tablet] 650 mg PO Q4HP PRN tablet 04/18/19 Amlodipine Besylate [Norvasc 10 mg Tablet] 10 mg PO DAILY #30 tablet 04/18/19 Aspirin [Ecotrin 81 mg EC Tablet] 81 mg PO DAILY #30 tabec 04/18/19 Atorvastatin Calcium [Lipitor 40 mg Tablet] 40 mg PO QHS #30 tablet 04/18/19 Hydralazine HCl [Apresoline 50 mg Tablet] 100 mg PO Q8 #180 tablet 04/18/19 Metoprolol Tartrate [Lopressor 50 mg Tablet] 50 mg PO Q12 #60 tablet 04/18/19 History of Present Illiness History of Present Illness: Per H&P by Dr. Bailey: ASAEL KOENIG is a 43 year old male with a past medical history of obesity, hypertension and tobacco dependence. He presents by referral from the [facility] after finding him with a blood pressure in the 200 systolic range associated with a headache. Patient had run out of his regular medications. In the emergency department he is found to have a blood pressure of 210/115 and a pulse of 106 his labs revealed acute renal failure with a creatinine of 2.2 and elevated troponin of 0.225. He denies chest pain nausea vomiting. He receives amlodipine, Lopressor and Tylenol for his headache and referred to the hospitalist for admission. Hospital Course Hospital Course: Patient was admitted to the medical floor on continuous cardiac telemetry. Serial troponins trended down and the patient did not experience chest discomfort or abnormal EKG tracings. In the emergency department he received IV Lopressor, IV hydralazine, Nitropaste and Lasix. The following morning, he was transitioned to an oral regiment of hydralazine, amlodipine and metoprolol. He did not require as needed medications for blood pressure control. On day of discharge, the patient is in stable condition, maintaining oxygen saturations while ambulatory on room air, and requesting to go home. Patient is discharged home in stable condition. He is advised to follow-up with his primary care provider within 1 week. He is instructed to take his medications as prescribed to eat a low-sodium diet. He is encouraged to return to the emergency department as needed for concerning symptoms. Physical Exam Vital Signs: Temp Pulse Resp BP Pulse Ox 97.8 F 103 H 16 135/85 H 96 04/18/19 08:05 04/18/19 08:05 04/18/19 08:05 04/18/19 08:05 04/18/19 08:05 Intake & Output 04/17/19 04/18/19 04/19/19 06:59 06:59 06:59 Intake Total 251.2 751.2 Balance 251.2 751.2 Weight 112.4 kg 113.1 kg General appearance: PRESENT: no acute distress, cooperative, obese, well- developed, well-nourished Head exam: PRESENT: atraumatic, normocephalic Eye exam: PRESENT: conjunctiva pink, EOMI, PERRLA. ABSENT: scleral icterus Mouth exam: PRESENT: moist, tongue midline Respiratory exam: PRESENT: clear to auscultation carito, symmetrical, unlabored. ABSENT: rales, rhonchi, wheezes Cardiovascular exam: PRESENT: RRR, +S1, +S2. ABSENT: diastolic murmur, rubs, systolic murmur Pulses: PRESENT: normal dorsalis pedis pul Vascular exam: PRESENT: normal capillary refill GI/Abdominal exam: PRESENT: normal bowel sounds, soft. ABSENT: distended, guarding, mass, organolmegaly, rebound, tenderness Rectal exam: PRESENT: deferred Extremities exam: PRESENT: full ROM. ABSENT: calf tenderness, clubbing, pedal edema Musculoskeletal exam: PRESENT: ambulatory Neurological exam: PRESENT: alert, awake, oriented to person, oriented to place, oriented to time, oriented to situation, CN II-XII grossly intact. ABSENT: motor sensory deficit Psychiatric exam: PRESENT: appropriate affect, normal mood. ABSENT: homicidal ideation, suicidal ideation Skin exam: PRESENT: dry, intact, warm. ABSENT: cyanosis, rash Results Laboratory Results: WBC 12.6 10^3/uL (4.0-10.5) H 04/18/19 05:36 RBC 5.48 10^6/uL (4.35-5.55) 04/18/19 05:36 Hgb 17.4 g/dL (13.5-17.0) H 04/18/19 05:36 Hct 50.6 % (37.9-51.0) 04/18/19 05:36 MCV 92 fl (80-97) 04/18/19 05:36 MCH 31.8 pg (27.0-33.4) 04/18/19 05:36 MCHC 34.5 g/dL (32.0-36.0) 04/18/19 05:36 RDW 14.0 % (11.5-14.0) 04/18/19 05:36 Plt Count 203 10^3/uL (150-450) 04/18/19 05:36 Lymph % (Auto) 19.6 % (13-45) 04/18/19 05:36 [place] % (Auto) 8.1 % (3-13) 04/18/19 05:36 Eos % (Auto) 1.3 % (0-6) 04/18/19 05:36 Baso % (Auto) 0.7 % (0-2) 04/18/19 05:36 Absolute Neuts (auto) 8.9 10^3/uL (1.7-8.2) H 04/18/19 05:36 Absolute Lymphs (auto) 2.5 10^3/uL (0.5-4.7) 04/18/19 05:36 Absolute Monos (auto) 1.0 10^3/uL (0.1-1.4) 04/18/19 05:36 Absolute Eos (auto) 0.2 10^3/uL (0.0-0.6) 04/18/19 05:36 Absolute Basos (auto) 0.1 10^3/uL (0.0-0.2) 04/18/19 05:36 Seg Neutrophils % 70.3 % (42-78) 04/18/19 05:36 Sodium 135.1 mmol/L (137-145) L 04/18/19 05:36 Potassium 3.6 mmol/L (3.6-5.0) 04/18/19 05:36 Chloride 102 mmol/L (98-107) 04/18/19 05:36 Carbon Dioxide 24 mmol/L (22-30) 04/18/19 05:36 Anion Gap 9 (5-19) 04/18/19 05:36 BUN 31 mg/dL (7-20) H 04/18/19 05:36 Creatinine 2.17 mg/dL (0.52-1.25) H 04/18/19 05:36 Est GFR ( Amer) 41 (>60) L 04/18/19 05:36 Est GFR (MDRD) Non-Af 34 (>60) L 04/18/19 05:36 Glucose 115 mg/dL (75-110) H 04/18/19 05:36 Calcium 9.1 mg/dL (8.4-10.2) 04/18/19 05:36 Magnesium 2.2 mg/dL (1.6-2.3) 04/18/19 05:36 Total Bilirubin 0.5 mg/dL (0.2-1.3) 04/18/19 05:36 Direct Bilirubin 0.1 mg/dL (0.0-0.4) 04/18/19 05:36 Neonat Total Bilirubin Not Reportable 04/18/19 05:36 Neonat Direct Bilirubin Not Reportable 04/18/19 05:36 Neonat Indirect Bili Not Reportable 04/18/19 05:36 AST 28 U/L (17-59) 04/18/19 05:36 ALT 28 U/L (<50) 04/18/19 05:36 Alkaline Phosphatase 76 U/L (38-126) 04/18/19 05:36 Creatine Kinase 77 U/L (55-170) 04/16/19 19:30 Troponin I 0.178 ng/mL 04/17/19 05:20 Total Protein 6.4 g/dL (6.3-8.2) 04/18/19 05:36 Albumin 3.5 g/dL (3.5-5.0) 04/18/19 05:36 Triglycerides 317 mg/dL (<150) H 04/17/19 05:20 Cholesterol 277.01 mg/dL (0-200) H 04/17/19 05:20 LDL Cholesterol Direct 217 mg/dL (<100) H 04/17/19 05:20 VLDL Cholesterol 63.4 mg/dL (10-31) H 04/17/19 05:20 HDL Cholesterol 35 mg/dL (>40) L 04/17/19 05:20 TSH 2.97 uIU/mL (0.47-4.68) 04/16/19 19:30 Urine Opiates Screen NEGATIVE 04/16/19 20:39 Urine Methadone Screen NEGATIVE 04/16/19 20:39 Ur Barbiturates Screen NEGATIVE 04/16/19 20:39 Ur Phencyclidine Scrn NEGATIVE 04/16/19 20:39 Ur Amphetamines Screen NEGATIVE 04/16/19 20:39 U Benzodiazepines Scrn NEGATIVE 04/16/19 20:39 Urine Cocaine Screen NEGATIVE 04/16/19 20:39 U Marijuana (THC) Screen NEGATIVE 04/16/19 20:39 04/16/19 04/16/19 04/17/19 16:40 19:09 05:20 Troponin I 0.227 0.240 0.178 Impressions: Chest X-Ray 04/16/19 16:25 IMPRESSION: Peribronchial cuffing in the setting of low inspiratory lung volumes and without a superimposed consolidation, sizeable pleural effusion or pneumothorax. Correlation with clinical findings for signs and symptoms of mild interstitial edema is recommended. Plan Plan of Treatment: Patient is discharged home in stable condition. He is advised to follow-up with his primary care provider within 1 week. He is instructed to take his medications as prescribed and to eat a low-sodium diet. He is encouraged to return to the emergency department as needed for concerning symptoms. Time Spent: Greater than 30 Minutes Stroke Is this a Stroke Patient?: No Acute Heart Failure - Is this a Heart Failure Patient?: No
[2019-04-18] MEDS ORDERED: INFLUENZA QUAD (6MOS+) 2019-20 VAC 0.5 ML SYR IM ONE ×2 (11:42→11:44)
[2019-04-18 12:00] VITALS: BP 167/134
[2019-04-18] MEDS ORDERED: ATORVASTATIN CALCIUM 40 MG TABLET PO SCH (22:00)
== END 2019-04-18 12:17 | disposition home or self-care (01) | DRG 305 ==
LOC: ER 16:01 → EH 20:32 → OBSVTOIN 20:32 → 3S 04-17 20:05
PROVIDERS: ADMIT Internal Medicine; ATTEND Internal Medicine
DX: I16.0 Hypertensive urgency (principal); N17.9 Acute kidney failure, unspecified; D75.1 Secondary polycythemia; E66.9 Obesity, unspecified; I10 Essential (primary) hypertension; F17.210 Nicotine dependence, cigarettes, uncomplicated; Z79.899 Other long term (current) drug therapy; Z79.82 Long term (current) use of aspirin
CPT/HCPCS: 36415; 71045; 80048; 80053; 80061; 80307; 82550; 83735; 84443; 84484; 85025; 90686; 93005; 93010; 99284; J0360; J1644; J1940; J2060; J3411; J3490; J7050

== ENCOUNTER → 2019-04-21 | Outpatient (CLI) | payer OTHER ==
[2019-04-21 11:38] LABS: ABSOLUTE BASOPHILS # (AUTO) 0.1 10^3/uL (0.0-0.2); ABSOLUTE EOSINOPHILS # (AUTO) 0.1 10^3/uL (0.0-0.6); ABSOLUTE LYMPHOCYTES (AUTO) 1.8 10^3/uL (0.5-4.7); ABSOLUTE MONOCYTES (AUTO) 1.2 10^3/uL (0.1-1.4); ABSOLUTE NEUT (AUTO) 10.2 10^3/uL (1.7-8.2); BASOPHILS % (AUTO) 0.9 % (0-2); HEMATOCRIT 48.9 % (37.9-51.0); HEMOGLOBIN 17.5 g/dL (13.5-17.0); LYMPHOCYTES % (AUTO) 13.3 % (13-45); MEAN CORPUSCULAR HEMOGLOBIN 32.9 pg (27.0-33.4); MEAN CORPUSCULAR HGB CONC 35.8 g/dL (32.0-36.0); MEAN CORPUSCULAR VOLUME 92 fl (80-97); MONOCYTES % (AUTO) 9.1 % (3-13); PLATELET COUNT 217 10^3/uL (150-450); RED BLOOD COUNT 5.32 10^6/uL (4.35-5.55); SEGMENTED NEUTROPHILS % (AUTO) 75.7 % (42-78); TOTAL CELLS COUNTED % (AUTO) 100 %; WHITE BLOOD COUNT 13.5 10^3/uL (4.0-10.5)
[2019-04-21 11:54] LABS: ANION GAP 7 (5-19); BLOOD UREA NITROGEN 22 mg/dL (7-20); CALCIUM 9.4 mg/dL (8.4-10.2); CARBON DIOXIDE 24 mmol/L (22-30); CHLORIDE 107 mmol/L (98-107); CHOLESTEROL 214.93 mg/dL (0-200); GLUCOSE 95 mg/dL (75-110); POTASSIUM 4.8 mmol/L (3.6-5.0); TRIGLYCERIDES 172 mg/dL (<150); URIC ACID 7.7 mg/dL (3.5-8.5)
[2019-04-21 12:05] LABS: DIRECT LDL 152 mg/dL (<100)
[2019-04-21 12:15] LABS: VLDL CHOLESTEROL 34.4 mg/dL (10-31)
== END ==
LOC: CCC 11:03
DX: I10 Essential (primary) hypertension (principal)
CPT/HCPCS: 36415; 80048; 80061; 83036; 84550; 85025

== ENCOUNTER 2019-07-30 17:33 | Emergency (ER) | payer SELFPAY ==
--- NOTE | 2019-07-30 18:04 | ER Document Report ---
ED Medical Screen (RME) - General Chief Complaint: Swelling of Lower Extremity Stated Complaint: LOWER EXTREMITY SWELLING Time Seen by Provider: 07/30/19 17:57 Primary Care Provider: ARCENIO CARPIO [Primary Care Provider] - Follow up as needed Mode of Arrival: Ambulatory Notes: 43-year-old male presented to ED for increasing swelling to both feet and ankles. He states is been increasing over the last week. He states when he got discharged from the hospital last time they changed his medicine and he did not understand how to take them so he was taken to where he was prescribed in the past. Blood pressure at this time is 198/118. He does have bilateral pedal edema. I have ordered him blood work urine chest x-ray and EKG. I have greeted and performed a rapid initial assessment of this patient. A comprehensive ED assessment and evaluation of the patient, analysis of test results and completion of medical decision making process will be conducted by an additional ED providers. TRAVEL OUTSIDE OF THE [place] IN LAST 30 DAYS: No - Related Data Allergies/Adverse Reactions: No Known Allergies Allergy (Verified 12/05/16 07:19) Home Medications: Metorpolol, Atorvastatin, Amlodipine, Hydralazine Past Medical History - Past Medical History Cardiac Medical History: Reports: Hx Hypertension Renal/ Medical History: Denies: Hx Peritoneal Dialysis - Immunizations Immunizations up to date: Yes Hx Diphtheria, Pertussis, Tetanus Vaccination: Yes Physical Exam - Vital signs Vitals: Temp Pulse Resp BP Pulse Ox 99.2 F 109 H 20 212/125 H 97 07/30/19 17:40 07/30/19 17:40 07/30/19 17:40 07/30/19 17:40 07/30/19 17:40 Course - Vital Signs Vital signs: Temp Pulse Resp BP Pulse Ox 99.2 F 109 H 20 214/124 H 97 07/30/19 17:58 07/30/19 17:40 07/30/19 17:40 07/30/19 17:44 07/30/19 17:40 Doctor's Discharge - Discharge Referrals: ARCENIO CARPIO [Primary Care Provider] - Follow up as needed
--- NOTE | 2019-07-30 18:30 | RADIOLOGY REPORT (SQ) ---
EXAM DESCRIPTION: CHEST 2 VIEWS IMAGES COMPLETED DATE/TIME: 07/30/2019 6:14 pm REASON FOR STUDY: Bilateral pedal edema hypertension 198/118 COMPARISON: 04/16/2019 EXAM PARAMETERS: NUMBER OF VIEWS: two views TECHNIQUE: Digital Frontal and Lateral radiographic views of the chest acquired. RADIATION DOSE: NA LIMITATIONS: none FINDINGS: LUNGS AND PLEURA: No opacities, masses or pneumothorax. No pleural effusion. MEDIASTINUM AND HILAR STRUCTURES: No masses or contour abnormalities. HEART AND VASCULAR STRUCTURES: Heart normal size. No evidence for failure. BONES: No acute findings. HARDWARE: None in the chest. OTHER: No other significant finding. IMPRESSION: NO ACUTE RADIOGRAPHIC FINDING IN THE CHEST. TECHNICAL DOCUMENTATION: JOB ID: [id number] [employer]- All Rights Reserved Reading location - IP/workstation name: [email or web address]
[2019-07-30] MEDS ORDERED: LABETALOL HCL INJ 20 MG/4 ML DISP.SYRIN IV ONE (19:03)
--- NOTE | 2019-07-30 19:15 | ER Document Report ---
ED General - General Chief Complaint: Swelling of Lower Extremity Stated Complaint: LOWER EXTREMITY SWELLING Time Seen by Provider: 07/30/19 17:57 Primary Care Provider: [facility] [Primary Care Provider] - Follow up as needed Mode of Arrival: Ambulatory TRAVEL OUTSIDE OF THE [place] IN LAST 30 DAYS: No - HPI Notes: Patient is a 43-year-old male who presents to the emergency department for evaluation of edema. He states is been ongoing for about 8 days. Is in his lower extremities. He denies any pain. He states that he has been taking his medications at home as prescribed, although there was some confusion in regards to how he was supposed to be taking his HCTZ. He states this edema is new, but he states that he was given compression stockings at his last visit to the emergency department. He has been wearing those over the last 48 hours. No chest pain. No paroxysmal nocturnal dyspnea, no orthopnea. - Related Data Allergies/Adverse Reactions: No Known Allergies Allergy (Verified 12/05/16 07:19) Home Medications: Metoprolol, Atorvastatin, Amlodipine, Hydralazine Past Medical History - General Information source: Patient - Social History Smoking Status: Current Every Day Smoker Family History: DM, Hyperlipidemia Patient has homicidal ideation: No - Past Medical History Cardiac Medical History: Reports: Hx Hypercholesterolemia, Hx Hypertension Renal/ Medical History: Denies: Hx Peritoneal Dialysis - Immunizations Immunizations up to date: Yes Hx Diphtheria, Pertussis, Tetanus Vaccination: Yes Review of Systems - Review of Systems Cardiovascular: See HPI -: Yes All other systems reviewed and negative Physical Exam - Vital signs Vitals: Temp Pulse Resp BP Pulse Ox 99.2 F 109 H 20 212/125 H 97 07/30/19 17:40 07/30/19 17:40 07/30/19 17:40 07/30/19 17:40 07/30/19 17:40 - Notes Notes: Vital signs reviewed, please refer to chart. Head is normocephalic, atraumatic. Pupils equal round, reactive to light. Neck is supple without meningismus. Heart is regular rate and rhythm. Lungs are clear to auscultation bilaterally. Abdomen is soft, nontender, normoactive bowel sounds throughout. Extremities without cyanosis, clubbing. Posterior calves are nontender. He has 2+ pitting edema to bilateral thighs. Peripheral pulses are equal. Skin is warm and dry. Patient is awake, alert, neurological exam is nonfocal. Course - Re-evaluation Re-evalutation: 07/30/19 19:14 Patient presents to the emergency department for evaluation. He was placed on a monitoring specialist, laboratory investigations were obtained. The patient states he has been being compliant with his medications, but he is on metoprolol and his heart rate is over 100. His blood pressure is markedly elevated. He is medicated here with labetalol. Laboratory investigations pending at this time, we will continue to monitor. 07/30/19 22:35 Patient's blood pressure is significantly improved. His proBNP is mildly elevated. I ordered Lasix and potassium. I had additionally ordered his amlodipine, but found upon further questioning that the patient does believe he took that earlier today. Currently his blood pressure is 147/93 with a heart rate of 89. Awaiting repeat troponin, patient is stable. 07/31/19 00:13 Patient's blood pressure better controlled. His delta troponin is less than 10%. My suspicion is that the modest elevation that he has a secondary to his chronic kidney disease. I explained to the patient that he needs to take his medications exactly as prescribed. I believe there is some confusion about that, so I will write out his medication list and his discharge instructions, thereby clarifying what he should be taking. He did already have some mild diuresis with the Lasix. He needs to follow-up with his primary care provider. I encouraged him to seek out possible referral on to nephrology as well. Otherwise, he is to return to the emergency department with worsening or new concerning symptoms of any sort. - Vital Signs Vital signs: Temp Pulse Resp BP Pulse Ox 99.2 F 109 H 20 148/107 H 96 07/30/19 17:58 07/30/19 17:40 07/30/19 23:01 07/30/19 23:00 07/30/19 23:01 - Laboratory Result Diagrams: 07/30/19 19:58 07/30/19 20:00 Laboratory results interpreted by me: 07/30/19 07/30/19 07/30/19 19:58 19:58 20:00 WBC 12.6 H RDW 14.3 H Absolute Neuts (auto) 9.0 H Potassium 3.5 L BUN 21 H Creatinine 1.74 H Est GFR ( Amer) 53 L Est GFR (MDRD) Non-Af 43 L Glucose 111 H NT-Pro-B Natriuret Pep 408 H Urine Protein Urine Blood 07/30/19 20:30 WBC RDW Absolute Neuts (auto) Potassium BUN Creatinine Est GFR ( Amer) Est GFR (MDRD) Non-Af Glucose NT-Pro-B Natriuret Pep Urine Protein >=500 H Urine Blood SMALL H - Diagnostic Test Radiology reviewed: Reports reviewed Radiology results interpreted by me: 07/30/19 19:15 Chest X-Ray 07/30/19 18:02 IMPRESSION: NO ACUTE RADIOGRAPHIC FINDING IN THE CHEST. - EKG Interpretation by Me Additional EKG results interpreted by me: 07/30/19 19:15 Sinus tachycardia with a rate of 104 bpm. Left axis deviation. Borderline QT prolongation. Nonspecific ST changes, but no acute changes concerning for infarction. No significant change from prior study of March 2019. Discharge - Discharge Clinical Impression: Leg edema Hypertension Qualifiers: Hypertension type: unspecified Qualified Code(s): I10 - Essential (primary) hypertension Condition: Stable Disposition: HOME, SELF-CARE Instructions: Dependent Edema ([facility]), High Blood Pressure, Requiring Treatment ([facility]) Additional Instructions: You need to take your medications exactly as prescribed. Follow-up with your primary care provider closely. You should also consider following up with the kidney doctor, as your renal function is slightly abnormal. If you develop worsened swelling, difficulty breathing, or any other new or concerning symptoms, please return immediately to the emergency department for evaluation. Take the following medications as prescribed: Atorvastatin 40 mg at bedtime, metoprolol tartrate 50 mg twice a day, hydralazine 50 mg, 2 tablets 3 times a day, amlodipine 10 mg daily, aspirin 81 mg daily Referrals: [facility] [Primary Care Provider] - Follow up as needed
[2019-07-30] MEDS ORDERED: HYDRALAZINE HCL 50 MG TABLET PO ONE (19:37)
[2019-07-30] MEDS ORDERED: METOPROLOL TARTRATE 50 MG TABLET PO ONE (19:37)
[2019-07-30 20:12] LABS: ABSOLUTE BASOPHILS # (AUTO) 0.1 10^3/uL (0.0-0.2); ABSOLUTE EOSINOPHILS # (AUTO) 0.3 10^3/uL (0.0-0.6); ABSOLUTE LYMPHOCYTES (AUTO) 2.2 10^3/uL (0.5-4.7); ABSOLUTE MONOCYTES (AUTO) 1.1 10^3/uL (0.1-1.4); BASOPHILS % (AUTO) 0.6 % (0-2); EOSINOPHILS % (AUTO) 2.2 % (0-6); HEMATOCRIT 44.5 % (37.9-51.0); HEMOGLOBIN 15.4 g/dL (13.5-17.0); LYMPHOCYTES % (AUTO) 17.1 % (13-45); MEAN CORPUSCULAR HEMOGLOBIN 31.1 pg (27.0-33.4); MEAN CORPUSCULAR HGB CONC 34.6 g/dL (32.0-36.0); MEAN CORPUSCULAR VOLUME 90 fl (80-97); MONOCYTES % (AUTO) 8.4 % (3-13); PLATELET COUNT 222 10^3/uL (150-450); RED BLOOD COUNT 4.95 10^6/uL (4.35-5.55); RED CELL DISTRIBUTION WIDTH 14.3 % (11.5-14.0); SEGMENTED NEUTROPHILS % (AUTO) 71.7 % (42-78); TOTAL CELLS COUNTED % (AUTO) 100 %; WHITE BLOOD COUNT 12.6 10^3/uL (4.0-10.5)
[2019-07-30 20:47] LABS: TROPONIN I 0.07 ng/mL
[2019-07-30 21:00] LABS: APPEARANCE,URINE SLIGHTLY-CLOUDY; BILIRUBIN,URINE NEGATIVE (NEGATIVE); COLOR,URINE YELLOW; GLUCOSE, URINE NEGATIVE (NEGATIVE); KETONES,URINE NEGATIVE (NEGATIVE); LEUKOCYTE ESTERASE,URINE NEGATIVE (NEGATIVE); NITRITE,URINE NEGATIVE (NEGATIVE); PROTEIN,URINE >=500 mg/dL (NEGATIVE); URINE SPECIFIC GRAVITY 1.015; UROBILINOGEN,URINE NEGATIVE mg/dL (<2.0)
[2019-07-30 21:34] LABS: ALBUMIN 3.9 g/dL (3.5-5.0); ALKALINE PHOSPHATASE 103 U/L (38-126); ANION GAP 9 (5-19); ASPARTATE AMINO TRANSFERASE 26 U/L (17-59); BILIRUBIN,TOTAL 0.6 mg/dL (0.2-1.3); BLOOD UREA NITROGEN 21 mg/dL (7-20); CARBON DIOXIDE 24 mmol/L (22-30); CHLORIDE 104 mmol/L (98-107); GLUCOSE 111 mg/dL (75-110); POTASSIUM 3.5 mmol/L (3.6-5.0)
[2019-07-30] MEDS ORDERED: FUROSEMIDE INJ/PF 20 MG/2 ML SDV IV ONE (21:42)
[2019-07-30] MEDS ORDERED: POTASSIUM CHLORIDE 10 MEQ TABLET.ER PO ONE (21:42)
[2019-07-30] MEDS ORDERED: AMLODIPINE BESYLATE 10 MG TABLET PO ONE (21:55)
[2019-07-31 01:07] VITALS: BP 150/110
--- NOTE | 2019-07-31 19:06 | EKG REPORT ---
SEVERITY:- ABNORMAL ECG - SINUS TACHYCARDIA DIMPLE, CONSIDER BIATRIAL ABNORMALITIES LEFT VENTRICULAR HYPERTROPHY CONSIDER ANTERIOR INFARCT BORDERLINE PROLONGED QT INTERVAL : Confirmed by: Kelle Campos MD 31-Jul-2019 19:06:17
== END 2019-07-31 01:18 | disposition home or self-care (01) ==
LOC: ER 17:33
DX: R60.0 Localized edema (principal); I10 Essential (primary) hypertension; E78.00 Pure hypercholesterolemia, unspecified; Z79.899 Other long term (current) drug therapy; F17.200 Nicotine dependence, unspecified, uncomplicated
CPT/HCPCS: 93005; 99285; 96374; 96375; 85025; 80053; 81001; 84484; 83880; 71046; 93010; 36415; J1940; J3490

== ENCOUNTER 2019-08-06 22:38 | Inpatient (IN) | payer SELFPAY ==
--- NOTE | 2019-08-06 23:30 | ER Document Report ---
ED Medical Screen (RME) - General Chief Complaint: Edema Stated Complaint: BILATERAL LOWER EXTERMITY SWELLING Time Seen by Provider: 08/06/19 23:23 [facility]: [facility] [Primary Care Provider] - Follow up as needed Mode of Arrival: Ambulatory Information source: Patient Notes: HPI; 43-year-old male past medical history significant for hypertension presents emergency room with worsening persistent bilateral pedal edema for the past 2 weeks. States he was seen here last week negative work-up. Was given Lasix which he states did give him some relief. States he had a virtual visit today with primary care physician was given more Lasix and states it is now not helping. States his legs are painful. Does not monitor his diet. He denies any shortness of breath. No difficulty breathing. PE: Alert and oriented x3. Moderate distress noted. Lungs: Clear to auscultation without rales rhonchi wheezes. Heart: Regular rate and rhythm without murmurs rubs or gallops. Bilateral 3+ pitting edema. I have greeted and performed a rapid initial assessment of this patient. A comprehensive ED assessment and evaluation of the patient, analysis of test results and completion of the medical decision making process will be conducted by additional ED providers. I have specifically instructed the patient or family members with the patient to immediately return to any nursing staff should anything change in the patient's condition or with their chief complaint. TRAVEL OUTSIDE OF THE [place] IN LAST 30 DAYS: No - Related Data Allergies/Adverse Reactions: No Known Allergies Allergy (Verified 12/05/16 07:19) Home Medications: metoprolol, lasix,amilodipine,hydraziline Past Medical History - Past Medical History Cardiac Medical History: Reports: Hx Hypercholesterolemia, Hx Hypertension Renal/ Medical History: Denies: Hx Peritoneal Dialysis - Immunizations Immunizations up to date: Yes Hx Diphtheria, Pertussis, Tetanus Vaccination: Yes Physical Exam - Vital signs Vitals: Temp Pulse Resp BP Pulse Ox 98.7 F 93 18 157/90 H 97 08/06/19 22:58 08/06/19 22:58 08/06/19 22:58 08/06/19 22:58 08/06/19 22:58 Course - Vital Signs Vital signs: Temp Pulse Resp BP Pulse Ox 98.7 F 93 18 157/90 H 97 08/06/19 23:12 08/06/19 22:58 08/06/19 22:58 08/06/19 22:58 08/06/19 22:58 Doctor's Discharge - Discharge Referrals: [facility] [Primary Care Provider] - Follow up as needed
[2019-08-07 00:41] LABS: ABSOLUTE BASOPHILS # (AUTO) 0.1 10^3/uL (0.0-0.2); ABSOLUTE EOSINOPHILS # (AUTO) 0.2 10^3/uL (0.0-0.6); ABSOLUTE MONOCYTES (AUTO) 0.9 10^3/uL (0.1-1.4); BASOPHILS % (AUTO) 0.7 % (0-2); EOSINOPHILS % (AUTO) 1.8 % (0-6); HEMATOCRIT 44.8 % (37.9-51.0); HEMOGLOBIN 15.4 g/dL (13.5-17.0); LYMPHOCYTES % (AUTO) 17.6 % (13-45); MEAN CORPUSCULAR HEMOGLOBIN 31.4 pg (27.0-33.4); MEAN CORPUSCULAR HGB CONC 34.4 g/dL (32.0-36.0); MEAN CORPUSCULAR VOLUME 91 fl (80-97); PLATELET COUNT 269 10^3/uL (150-450); RED CELL DISTRIBUTION WIDTH 14.2 % (11.5-14.0); SEGMENTED NEUTROPHILS % (AUTO) 71.9 % (42-78); TOTAL CELLS COUNTED % (AUTO) 100 %; WHITE BLOOD COUNT 11.1 10^3/uL (4.0-10.5)
[2019-08-07 00:57] LABS: ALBUMIN 4.2 g/dL (3.5-5.0); ALKALINE PHOSPHATASE 98 U/L (38-126); ANION GAP 10 (5-19); ASPARTATE AMINO TRANSFERASE 26 U/L (17-59); BILIRUBIN,DIRECT 0.1 mg/dL (0.0-0.4); BILIRUBIN,TOTAL 0.3 mg/dL (0.2-1.3); BLOOD UREA NITROGEN 19 mg/dL (7-20); CALCIUM 9.5 mg/dL (8.4-10.2); CARBON DIOXIDE 24 mmol/L (22-30); CHLORIDE 105 mmol/L (98-107); GLUCOSE 137 mg/dL (75-110); POTASSIUM 3.7 mmol/L (3.6-5.0); TOTAL PROTEIN 7.2 g/dL (6.3-8.2)
--- NOTE | 2019-08-07 01:12 | RADIOLOGY REPORT (SQ) ---
EXAM DESCRIPTION: X-ray, two views of the chest CLINICAL HISTORY: 43 years Male, edema COMPARISON: AP portable view of the chest 04/16/2019 FINDINGS: Lungs: The appearance of the lung parenchyma is stable. No focal consolidation. No pneumothorax or pleural effusion. Mediastinum: Heart size is enlarged but the appearance is stable. The appearance of the mediastinum is stable. Bones: Osseous structures are normal. IMPRESSION: Stable cardiomegaly. No pneumonia or edema.
[2019-08-07 01:20] LABS: TROPONIN I 0.05 ng/mL
[2019-08-07] MEDS ORDERED: FUROSEMIDE INJ/PF 40 MG/4 ML SDV IV ONE (01:41)
[2019-08-07] MEDS ORDERED: ASPIRIN 325 MG TABLET PO ONE (01:42)
--- NOTE | 2019-08-07 01:50 | ER Document Report ---
ED General - General Chief Complaint: Edema Stated Complaint: BILATERAL LOWER EXTERMITY SWELLING Time Seen by Provider: 08/06/19 23:23 Primary Care Provider: [facility] [Primary Care Provider] - Follow up as needed Mode of Arrival: Ambulatory Notes: 43-year-old male presents with leg edema painful, gradual onset 3 days now tight and shiny and not improving. Oliguria as well. No shortness of breath no chest pain orthopnea dyspnea. Has history of hypertension and is admitted a couple of times for hypertensive urgency and acute renal failure. He says that he was seen by his primary yesterday put him on Lasix, he said 1 dose and has not peed. He denies headache visual symptoms or any other symptoms TRAVEL OUTSIDE OF THE [place] IN LAST 30 DAYS: No - Related Data Allergies/Adverse Reactions: No Known Allergies Allergy (Verified 12/05/16 07:19) Home Medications: metoprolol, lasix,amilodipine,hydraziline Past Medical History - General Information source: Patient - Social History Smoking Status: Current Every Day Smoker Family History: DM, Hyperlipidemia Patient has homicidal ideation: No - Past Medical History Cardiac Medical History: Reports: Hx Hypercholesterolemia, Hx Hypertension Renal/ Medical History: Denies: Hx Peritoneal Dialysis - Immunizations Immunizations up to date: Yes Hx Diphtheria, Pertussis, Tetanus Vaccination: Yes Review of Systems - Review of Systems Notes: REVIEW OF SYSTEMS GEN: Denies fever, chills, weight loss ENT: Denies sore throat, nasal discharge, ear pain EYES: Denies blurry vision, eye pain, discharge CV: Denies chest pain, palpitations, edema RESP: Denies cough, shortness of breath, wheezing GI: Denies abdominal pain, nausea, vomiting, diarrhea MSK: Leg edema SKIN: Denies rash, skin lesions LYMPH: Denies swollen glands/lymph nodes NEURO: Denies headache, focal weakness or numbness, dizziness PSYCH: Denies depression, suicidal or homicidal ideation PHYSICAL EXAMINATION General: No acute distress, well-nourished Head: Atraumatic, normocephalic ENT: Mouth normal, oropharynx moist, no exudates or tonsillar enlargement Eyes: Conjunctiva normal, pupils equal, lids normal Neck: No JVD, supple, no guarding CVS: Normal rate, regular rhythm, no murmurs. Asymmetric left breast enlargement without tenderness. Resp: No resp distress, equal and normal breath sounds bilaterally GI: Nondistended, soft, no tenderness to palpation, no rebound or guarding Ext: 2-3+ leg edema from the toes to the calf symmetrically with shiny skin but no redness or warmth. Nd lower ext Back: No CVA or midline TTP Skin: No rash, warm Lymphatic: No lymphadeopathy noted Neuro: Awake, alert. Face symmetric. GCS 15. Physical Exam - Vital signs Vitals: Temp Pulse Resp BP Pulse Ox 98.7 F 93 18 157/90 H 97 08/06/19 22:58 08/06/19 22:58 08/06/19 22:58 08/06/19 22:58 08/06/19 22:58 Course - Re-evaluation Re-evalutation: 08/07/19 02:10 Patient presents with hypertension although less than his usual numbers, with new onset leg edema. He has no history of heart failure. I suspect this is probably right heart failure, or accelerated hypertension but he has no signs of acute pulmonary edema, aortic dissection, ACS, or elevate intracranial pressure. I will give him a dose of Lasix IV. He does have an elevated creatinine. I discussed him with Dr. Anderson for admission. - Vital Signs Vital signs: Temp Pulse Resp BP Pulse Ox 98.7 F 93 18 157/90 H 97 08/06/19 23:12 08/06/19 22:58 08/06/19 22:58 08/06/19 22:58 08/06/19 22:58 - Laboratory Result Diagrams: 08/07/19 00:13 08/07/19 00:13 Laboratory results interpreted by me: 08/07/19 08/07/19 08/07/19 00:13 00:13 00:13 WBC 11.1 H RDW 14.2 H Creatinine 2.24 H Est GFR ( Amer) 39 L Est GFR (MDRD) Non-Af 32 L Glucose 137 H NT-Pro-B Natriuret Pep 163 H - Diagnostic Test Radiology reviewed: Image reviewed, Reports reviewed - EKG Interpretation by Me EKG shows normal: Sinus rhythm Rate: Normal Rhythm: NSR - LVH with T wave inversion in V6 unchanged from prior no ST changes When compared to previous EKG there are: No significant change Discharge - Discharge Clinical Impression: Acute kidney injury Condition: Fair Disposition: ADMITTED INPATIENT Admitting Provider: Justin (Hospitalist) Unit Admitted: Medical Floor Referrals: [facility] [Primary Care Provider] - Follow up as needed
--- NOTE | 2019-08-07 01:52 | ER Document Report ---
ED General - General Chief Complaint: Edema Stated Complaint: BILATERAL LOWER EXTERMITY SWELLING Time Seen by Provider: 08/06/19 23:23 Primary Care Provider: [facility] CARP[facility] [Primary Care Provider] - Follow up as needed Mode of Arrival: Ambulatory TRAVEL OUTSIDE OF THE [place] IN LAST 30 DAYS: No - Related Data Allergies/Adverse Reactions: No Known Allergies Allergy (Verified 12/05/16 07:19) Home Medications: metoprolol, lasix,amilodipine,hydraziline Past Medical History - General Information source: Patient - Social History Smoking Status: Current Every Day Smoker Family History: DM, Hyperlipidemia Patient has homicidal ideation: No - Past Medical History Cardiac Medical History: Reports: Hx Hypercholesterolemia, Hx Hypertension Renal/ Medical History: Denies: Hx Peritoneal Dialysis - Immunizations Immunizations up to date: Yes Hx Diphtheria, Pertussis, Tetanus Vaccination: Yes Physical Exam - Vital signs Vitals: Temp Pulse Resp BP Pulse Ox 98.7 F 93 18 157/90 H 97 08/06/19 22:58 08/06/19 22:58 08/06/19 22:58 08/06/19 22:58 08/06/19 22:58 Course - Vital Signs Vital signs: Temp Pulse Resp BP Pulse Ox 98.7 F 93 18 157/90 H 97 08/06/19 23:12 08/06/19 22:58 08/06/19 22:58 08/06/19 22:58 08/06/19 22:58 - Laboratory Result Diagrams: 08/07/19 00:13 08/07/19 00:13 Laboratory results interpreted by me: 08/07/19 08/07/19 08/07/19 00:13 00:13 00:13 WBC 11.1 H RDW 14.2 H Creatinine 2.24 H Est GFR ( Amer) 39 L Est GFR (MDRD) Non-Af 32 L Glucose 137 H NT-Pro-B Natriuret Pep 163 H Discharge - Discharge Clinical Impression: Acute kidney injury Condition: Fair Disposition: ADMITTED INPATIENT Admitting Provider: Justin (Hospitalist) Unit Admitted: Medical Floor Referrals: [facility] ARC[facility] JOHNSON [Primary Care Provider] - Follow up as needed
[2019-08-07] MEDS ORDERED: LEVALBUTEROL HCL NEB 0.63 MG/3 ML AMPUL NEB PRN (03:00)
[2019-08-07] MEDS ORDERED: MAG HYDROX/AL HYDROX/SIMETH SUSP 30 ML UDCUP PO PRN (03:00)
[2019-08-07] MEDS ORDERED: PROMETHAZINE HCL INJ 25 MG/1 ML VIAL IV PRN (03:00)
[2019-08-07] MEDS ORDERED: MAGNESIUM HYDROXIDE SUSP 30 ML UDCUP PO PRN (03:00)
[2019-08-07] MEDS ORDERED: RINGERS SOLUTION,LACTATED 1,000 ML IV PRN (03:00)
[2019-08-07] MEDS ORDERED: LORAZEPAM INJ 2 MG/1 ML VIAL IV PRN (03:08)
[2019-08-07] MEDS ORDERED: ACETAMINOPHEN 325 MG TABLET PO PRN (03:08)
[2019-08-07] MEDS ORDERED: MORPHINE SULFATE 10 MG/ML INJ IV PRN ×4 (03:08→04:59)
[2019-08-07] MEDS ORDERED: GUAIFENESIN SYRP 200 MG/10 ML UDC PO PRN (03:08)
[2019-08-07] MEDS ORDERED: HYDRALAZINE HCL INJ/PF 20 MG/1 ML SDV IV PRN (03:08)
[2019-08-07] MEDS ORDERED: METOPROLOL TARTRATE PF/INJ 5 MG/5 ML SDV IV PRN (03:08)
[2019-08-07] MEDS ORDERED: NICOTINE 21 MG/24 HR PATCH.TD24 TD PRN (03:08)
[2019-08-07] MEDS ORDERED: RINGERS SOLUTION,LACTATED 1,000 ML IV ONE (03:14)
[2019-08-07 03:58] LABS: CREATINE KINASE MB 0.63 ng/mL (<4.55)
[2019-08-07 04:00] LABS: TROPONIN I 0.051 ng/mL
[2019-08-07] MEDS: PANTOPRAZOLE SODIUM 40 MG TABLET.DR PO SCH (05:36)
[2019-08-07] MEDS: HEPARIN SOD (PORCINE) 5,000 UNIT/ML 1 ML VIAL SUBCUT SCH ×3 (05:36→21:30)
[2019-08-07] MEDS ORDERED: BUMETANIDE INJ/PF 1 MG/4 ML SDV IV ONE (06:00)
[2019-08-07 06:06] LABS: HEMATOCRIT 41.7 % (37.9-51.0); HEMOGLOBIN 14.4 g/dL (13.5-17.0); MEAN CORPUSCULAR HEMOGLOBIN 31.1 pg (27.0-33.4); MEAN CORPUSCULAR HGB CONC 34.6 g/dL (32.0-36.0); MEAN CORPUSCULAR VOLUME 90 fl (80-97); PLATELET COUNT 252 10^3/uL (150-450); RED BLOOD COUNT 4.64 10^6/uL (4.35-5.55); RED CELL DISTRIBUTION WIDTH 14.4 % (11.5-14.0); WHITE BLOOD COUNT 9.2 10^3/uL (4.0-10.5)
--- NOTE | 2019-08-07 06:20 | PDOC H&P ---
History of Present Illness Admission Date/PCP: 08/07/19 02:18 [facility] Patient complains of: Edema History of Present Illness: ASAEL KOENIG is a 43 year old male who presented the emergency room with a 3-day history of lower extremity edema. He admits gradually worsening edema of his bilateral lower extremities over the last 3 days becoming painful on 08/06/2019. His leg edema has been associated with anuria despite being started on Lasix by his primary care provider yesterday. He denies other associated or accompanying signs and symptoms. His pain is a constant moderately severe tightness/pressure in the bilateral lower extremities without radiation. He denies prior similar episodes. He has not identified any aggravating or ameliorating factors for his lower extremity edema. In the emergency room he was found to have a creatinine slightly elevated above his baseline and was noted to have 2+ edema of the bilateral lower extremities. He was subsequently admitted to the hospital for further evaluation and treatment. Past Medical History Cardiac Medical History: Reports: Hyperlipidema, Hypertension Denies: Atrial Fibrillation, Congestive Heart Failure, Coronary Artery Disease, Myocardial Infarction Pulmonary Medical History: Denies: Asthma, Chronic Obstructive Pulmonary Disease (COPD) EENT Medical History: Denies: Cataracts, Ears - Hearing aids Neurological Medical History: Denies: Hemorrhagic CVA, Ischemic CVA, Seizures Endocrine Medical History: Reports: Obesity Denies: Diabetes Mellitus Type 1, Diabetes Mellitus Type 2, Hyperthyroidism, Hypothyroidism Renal/ Medical History: Reports: Chronic Kidney Disease Denies: Nephrolithiasis Malignancy Medical History: Reports: None GI Medical History: Denies: Cirrhosis, Crohn's Disease, Hepatitis, Peptic Ulcer Disease, Ulcerative Colitis Musculoskeltal Medical History: Denies: Arthritis, Fibromyalgia, Gout Skin Medical History: Denies: Eczema, Psoriasis Psychiatric Medical History: Reports: Tobacco Dependency Denies: Alcohol Dependency, Substance Abuse Traumatic Medical History: Reports: None Hematology: Denies: Anemia, Bleeding Tendencies Infectious Medical History: Reports: None Past Surgical History Past Surgical History: Reports: None Social History Information Source: Patient Lives with: Spouse/Significant other Smoking Status: Current Every Day Smoker Electronic Cigarette use?: No Frequency of Alcohol Use: Social Hx Recreational Drug Use: No Drugs: None Hx Prescription Drug Abuse: No - Advance Directive Resuscitation Status: Full Code Surrogate healthcare decision maker:: Emy Deleon Family History Family History: DM, Hyperlipidemia Parental Family History Reviewed: Yes Children Family History Reviewed: No Sibling(s) Family History Reviewed.: Yes Medication/Allergy Home Medications: Amlodipine Besylate [Norvasc 10 mg Tablet] 10 mg PO DAILY #30 tablet 04/18/19 Aspirin [Ecotrin 81 mg EC Tablet] 81 mg PO DAILY #30 tabec 04/18/19 Atorvastatin Calcium [Lipitor 40 mg Tablet] 40 mg PO QHS #30 tablet 04/18/19 Hydralazine HCl [Apresoline 50 mg Tablet] 100 mg PO Q8 #180 tablet 04/18/19 Metoprolol Tartrate [Lopressor 50 mg Tablet] 50 mg PO Q12 #60 tablet 04/18/19 Allergies/Adverse Reactions: No Known Allergies Allergy (Verified 12/05/16 07:19) Review of Systems Constitutional: ABSENT: chills, fever(s) Eyes: ABSENT: visual disturbances, other - Eye pain Ears: ABSENT: hearing changes, other - Ear pain Nose, Mouth, and Throat: ABSENT: headache(s), sore throat Breasts: PRESENT: other - Left breast larger than right Cardiovascular: PRESENT: as per HPI, edema. ABSENT: chest pain, dyspnea on exertion, orthropnea, palpitations Respiratory: ABSENT: cough, dyspnea Gastrointestinal: ABSENT: abdominal pain, constipation, diarrhea, nausea, vomiting Genitourinary: PRESENT: as per HPI, difficulty urinating - Oliguria/anuria x3 days. ABSENT: dysuria, hematuria Musculoskeletal: ABSENT: back pain, joint swelling Integumentary: ABSENT: diaphoresis, pruritus, rash Neurological: ABSENT: confusion, convulsions, focal weakness, memory loss, syncope Psychiatric: ABSENT: anxiety, depression Endocrine: ABSENT: cold intolerance, heat intolerance, polydipsia, polyphagia, polyuria Hematologic/Lymphatic: ABSENT: easy bleeding, easy bruising Allergic/Immunologic: ABSENT: seasonal rhinorrhea Physical Exam Vital Signs: Temp Pulse Resp BP Pulse Ox 98.7 F 93 18 157/90 H 97 08/06/19 23:12 08/06/19 22:58 08/06/19 22:58 08/06/19 22:58 08/06/19 22:58 Intake & Output 08/05/19 08/06/19 08/07/19 23:59 23:59 23:59 Weight 116.9 kg General appearance: PRESENT: cooperative, mild distress - Secondary to leg pain, morbidly obese Head exam: PRESENT: atraumatic, normocephalic Eye exam: PRESENT: conjunctiva pink. ABSENT: conjunctival injection, scleral icterus Ear exam: PRESENT: normal external ear exam. ABSENT: bleeding, drainage Mouth exam: PRESENT: dry mucosa, neck supple Neck exam: ABSENT: thyromegaly, tracheal deviation Respiratory exam: PRESENT: clear to auscultation carito, symmetrical, unlabored Cardiovascular exam: PRESENT: RRR. ABSENT: clicks, gallop, rubs Pulses: PRESENT: normal carotid pulses, normal radial pulses Vascular exam: PRESENT: normal capillary refill. ABSENT: pallor GI/Abdominal exam: PRESENT: normal bowel sounds, soft Rectal exam: PRESENT: deferred Extremities exam: PRESENT: pedal edema, +2 edema - 2+ pitting edema of the bilateral lower extremities. ABSENT: joint swelling Musculoskeletal exam: ABSENT: deformity, dislocation Neurological exam: PRESENT: alert, oriented to person, oriented to place, oriented to time, oriented to situation, CN II-XII grossly intact. ABSENT: motor sensory deficit Psychiatric exam: PRESENT: appropriate affect, normal mood Skin exam: PRESENT: dry, intact, warm. ABSENT: jaundice, rash, urticaria Results Laboratory Results: 08/07/19 00:13 08/07/19 00:13 08/07/19 08/07/19 00:13 00:13 WBC 11.1 H RBC 4.90 Hgb 15.4 Hct 44.8 MCV 91 MCH 31.4 MCHC 34.4 RDW 14.2 H Plt Count 269 Seg Neutrophils % 71.9 Sodium 139.3 Potassium 3.7 Chloride 105 Carbon Dioxide 24 Anion Gap 10 BUN 19 Creatinine 2.24 H Est GFR ( Amer) 39 L Glucose 137 H Calcium 9.5 Total Bilirubin 0.3 AST 26 Alkaline Phosphatase 98 Total Protein 7.2 Albumin 4.2 08/07/19 00:13 Troponin I 0.050 NT-Pro-B Natriuret Pep 163 H Impressions: Chest X-Ray 08/06/19 23:27 IMPRESSION: Stable cardiomegaly. No pneumonia or edema. Assessment and Plan - Diagnosis (1) Acute kidney injury Is this a current diagnosis for this admission?: Yes (2) Bilateral lower extremity edema Is this a current diagnosis for this admission?: Yes (3) Hypertension Qualifiers: Hypertension type: essential hypertension Qualified Code(s): I10 - Essential (primary) hypertension Is this a current diagnosis for this admission?: Yes (4) Morbid obesity Is this a current diagnosis for this admission?: Yes (5) Tobacco abuse Is this a current diagnosis for this admission?: Yes - Plan Summary Summary: Patient will be admitted to the hospital on the medical service where he received routine supportive and symptomatic cares. He will be initially given an IV 1 L bolus followed by IV fluids at 250 mL/h x 8 hours and reassessed for urine output. A nephrology consultation will be obtained with Dr. De Leon. His medications will be reviewed and and and it may be nephrotoxic will be discontinued. He will use morphine sulfate 2 to 4 mg IV every 2 hours on an as-needed basis for pain. He will use Ativan 1 mg IV every 4 hours on as-needed basis for anxiety or restlessness. He will be placed on a cardiac and prerenal restriction diet. CBCs, magnesium levels and metabolic profiles will be obtained as needed. Additional laboratory and/or radiographic evaluations will be obtained as appropriate. Smoking cessation is advised and counseled briefly at the bedside. Nicotine replacement patch is available for the patient's use, if desired. - Time Time Spent with patient: 15-24 minutes Smoking Cessation Education: 3 to 10 minutes Medications reviewed and adjusted accordingly: Yes Anticipated discharge: Home - Inpatient Certification Based on my medical assessment, after consideration of the patient's comorbidities, presenting symptoms, or acuity I expect that the services needed warrant INPATIENT care.: Yes I certify that my determination is in accordance with my understanding of Medicare's requirements for reasonable and necessary INPATIENT services [42 CFR 412.3e].: Yes Medical Necessity: Need Close Monitoring Due to Risk of Patient Decompensation, Need For IV Fluids, Need For Continuous Telemetry Monitoring, Need for Pain Control, Risk of Complication if Not Cared For in Hospital
[2019-08-07 06:24] LABS: ANION GAP 10 (5-19); BLOOD UREA NITROGEN 18 mg/dL (7-20); CALCIUM 8.9 mg/dL (8.4-10.2); CARBON DIOXIDE 24 mmol/L (22-30); CHLORIDE 106 mmol/L (98-107); CHOLESTEROL 130.16 mg/dL (0-200); GLUCOSE 126 mg/dL (75-110); POTASSIUM 3.7 mmol/L (3.6-5.0); TRIGLYCERIDES 245 mg/dL (<150)
[2019-08-07 06:34] LABS: DIRECT LDL 66 mg/dL (<100)
--- NOTE | 2019-08-07 06:57 | EKG REPORT ---
SEVERITY:- ABNORMAL ECG - SINUS RHYTHM PROBABLE LEFT VENTRICULAR HYPERTROPHY CONSIDER ANTERIOR INFARCT ABNORMAL T, CONSIDER ISCHEMIA, LATERAL LEADS BORDERLINE PROLONGED QT INTERVAL : Confirmed by: Nino Edwards MD 07-Aug-2019 06:56:27
[2019-08-07] MEDS: DOCUSATE SODIUM 100 MG CAPSULE PO SCH ×2 (09:06→18:15)
--- NOTE | 2019-08-07 14:27 | PDOC CONSULTATION ---
Consultation Consult Date: 08/07/19 Provider Consulted: Malathi BECKHAM Consult reason:: AILYN on CKD History of Present Illness Admission Date/PCP: 08/07/19 02:18 [facility] History of Present Illness: ASAEL KOENIG is a 43 year old male with a longstanding history of un controlled and untreated hypertensions probably since his late teens and early 20s was admitted with history of progressive swelling of his legs with tightness for the last couple of weeks. Apparently he came to the ER last week and was given some medications and discharged home and advised to follow-up with [facility] with whom he doctors. However it was getting any worse and therefore came back and this time was admitted. He gives a history of being on regular antihypertensives in the last couple of years through the [facility] and even that has been noncompliant because of financial reasons. Currently he states his blood pressure has been well controlled to a round 120 systolic usually. 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 He denies history of chest pain or shortness of breath. No swelling coughing spells fever or chills. No history of any leg pains. No history of being inactive. He is been aware that he has got some kidney disease but was not sure of his baseline.He does not recall having any imaging studies done recently. However he had a CT scan done in 2010 which showed that he had mild left hydronephrosis along with nephrolithiasis suggestive of recent passage of stone. Patient admits to high sodium diet. Intermittent usage of NSAIDs. No apparent history of diabetes, congestive heart failure or ischemic heart disease.His admission creatinine was 2.2 and then last week he was in the ER his creatinine was 1.7.Patient currently feels better with decreasing edema of his lower extremities and the tightness is also improved. Past Medical History Cardiac Medical History: Reports: Hyperlipidemia, Hypertension-primary Denies: Atrial Fibrillation, Coronary Artery Disease, Myocardial Infarction Pulmonary Medical History: Denies: Asthma, Chronic Obstructive Pulmonary Disease (COPD) EENT Medical History: Denies: Cataracts, Ears - Hearing aids Neurological Medical History: Denies: Hemorrhagic CVA, Ischemic CVA, Seizures Endocrine Medical History: Reports: Obesity Denies: Diabetes Mellitus Type 1, Diabetes Mellitus Type 2, Hyperthyroidism, Hypothyroidism Complications of Diabetes: Reports: None Renal/ Medical History: Reports: Chronic Kidney Disease Stage III, Nephrolithiasis Malignancy Medical History: Reports: None GI Medical History: Denies: Cirrhosis, Crohn's Disease, Hepatitis, Peptic Ulcer Disease, Ulcerative Colitis Musculoskeltal Medical History: Denies: Arthritis, Fibromyalgia, Gout Skin Medical History: Denies: Eczema, Psoriasis Psychiatric Medical History: Reports: Tobacco Dependency Denies: Alcohol Dependency, Depression, Substance Abuse Traumatic Medical History: Reports: None Infectious Medical History: Reports: None Past Surgical History Past Surgical History: Reports: None Social History Lives with: Spouse/Significant other Smoking Status: Current Every Day Smoker Cigarettes Packs Per Day: 0.3 Electronic Cigarette use?: No Number of Years Smokin Last Time Smoked: 08/06/2019 Frequency of Alcohol Use: Social Hx Recreational Drug Use: No Drugs: None Hx Prescription Drug Abuse: No - Advance Directive Resuscitation Status: Full Code Family History Parental Family History Reviewed: Yes - His father and paternal [facility] and [facility] Reviewed: No Sibling(s) Family History Reviewed.: No Medication/Allergy Home Medications: Amlodipine Besylate [Norvasc 10 mg Tablet] 10 mg PO DAILY #30 tablet 04/18/19 Aspirin [Ecotrin 81 mg EC Tablet] 81 mg PO DAILY #30 tabec 04/18/19 Atorvastatin Calcium [Lipitor 40 mg Tablet] 40 mg PO QHS #30 tablet 04/18/19 Hydralazine HCl [Apresoline 50 mg Tablet] 100 mg PO Q8 #180 tablet 04/18/19 Metoprolol Tartrate [Lopressor 50 mg Tablet] 50 mg PO Q12 #60 tablet 04/18/19 Furosemide [Lasix 20 mg Tablet] 20 mg PO DAILY 08/07/19 Allergies/Adverse Reactions: No Known Allergies Allergy (Verified 12/05/16 07:19) Review of Systems Constitutional: ABSENT: anorexia, chills, fatigue, fever(s), headache(s), night sweats, weakness Nose, Mouth, and Throat: ABSENT: mouth pain, sore throat Cardiovascular: PRESENT: edema. ABSENT: chest pain, dyspnea on exertion, orthropnea, palpitations Respiratory: ABSENT: cough, dyspnea, hemoptysis Gastrointestinal: ABSENT: abdominal pain, bloating, constipation, diarrhea, dysphagia, heartburn, hematemesis, nausea, vomiting Genitourinary: ABSENT: dysuria, hematuria Musculoskeletal: ABSENT: deformity, joint swelling Integumentary: ABSENT: erythema, lesions, pruritus, rash Neurological: ABSENT: abnormal gait, abnormal speech, confusion, focal weakness, frequent falls Endocrine: ABSENT: polydipsia Hematologic/Lymphatic: ABSENT: easy bleeding, lymphadenopathy Physical Exam Vital Signs: Temp Pulse Resp BP Pulse Ox 98.3 F 80 14 130/80 H 96 08/07/19 07:28 08/07/19 08:00 08/07/19 08:00 08/07/19 07:28 08/07/19 08:00 Intake & Output 08/06/19 08/07/19 08/08/19 06:59 06:59 06:59 Intake Total 1500 Output Total 1420 Balance 80 Weight 100.8 kg General appearance: PRESENT: no acute distress Eye exam: PRESENT: EOMI, PERRLA. ABSENT: scleral icterus Ear exam: PRESENT: normal external ear exam Mouth exam: PRESENT: moist Neck exam: ABSENT: lymphadenopathy, meningismus, tenderness, thyromegaly Respiratory exam: PRESENT: clear to auscultation carito. ABSENT: crackles Cardiovascular exam: PRESENT: +S1, +S2. ABSENT: carotid bruit, rubs GI/Abdominal exam: PRESENT: normal bowel sounds, soft. ABSENT: organomegaly, tenderness Extremities exam: PRESENT: +1 edema Neurological exam: PRESENT: alert, awake, oriented to person, oriented to place Psychiatric exam: PRESENT: appropriate affect Skin exam: ABSENT: cyanosis, erythema, rash Results Laboratory Results: 08/07/19 04:49 08/07/19 04:49 08/07/19 08/07/19 08/07/19 00:13 00:13 04:49 WBC 11.1 H RBC 4.90 Hgb 15.4 Hct 44.8 MCV 91 MCH 31.4 MCHC 34.4 RDW 14.2 H Plt Count 269 Seg Neutrophils % 71.9 Sodium 139.3 Potassium 3.7 Chloride 105 Carbon Dioxide 24 Anion Gap 10 BUN 19 Creatinine 2.24 H Est GFR ( Amer) 39 L Glucose 137 H Calcium 9.5 Magnesium Total Bilirubin 0.3 AST 26 Alkaline Phosphatase 98 Total Protein 7.2 Albumin 4.2 Triglycerides Cholesterol LDL Cholesterol Direct VLDL Cholesterol HDL Cholesterol TSH 3.31 08/07/19 08/07/19 04:49 04:49 WBC 9.2 RBC 4.64 Hgb 14.4 Hct 41.7 MCV 90 MCH 31.1 MCHC 34.6 RDW 14.4 H Plt Count 252 Seg Neutrophils % Sodium 139.9 Potassium 3.7 Chloride 106 Carbon Dioxide 24 Anion Gap 10 BUN 18 Creatinine 2.06 H Est GFR ( Amer) 43 L Glucose 126 H Calcium 8.9 Magnesium 2.1 Total Bilirubin AST Alkaline Phosphatase Total Protein Albumin Triglycerides 245 H Cholesterol 130.16 LDL Cholesterol Direct 66 VLDL Cholesterol 49.0 H HDL Cholesterol 32 L TSH 08/07/19 08/07/19 08/07/19 00:13 03:15 03:15 Creatine Kinase 95 CK-MB (CK-2) 0.63 Troponin I 0.050 0.051 NT-Pro-B Natriuret Pep 163 H Impressions: Chest X-Ray 08/06/19 23:27 IMPRESSION: Stable cardiomegaly. No pneumonia or edema. Assessment & Plan - Diagnosis (1) CKD (chronic kidney disease), stage III Plan: Patient looks like has got underlying hypertensive kidney disease with base creatinine of around 2. However cannot rule out underlying nephritis.Now with slight decompensation. Nonoliguric. Patient has got signs and symptoms of fluid overload. See response to diuretics. Get further evaluations including urine analysis and imaging studies. Further studies after seeing those baseline studies. (2) Acute kidney injury Is this a current diagnosis for this admission?: Yes Plan: Mild decompensation from the base creatinine of around 2. Most likely cause is hypertensive nephropathy but cannot rule out underlying nephritis. Get baseline studies. Start diuretics. (3) Hypertension Qualifiers: Hypertension type: essential hypertension Qualified Code(s): I10 - Essential (primary) hypertension Is this a current diagnosis for this admission?: Yes Plan: Presently well controlled. Monitor
--- NOTE | 2019-08-07 18:24 | Progress Note ---
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 Overnight events, vital signs, H&P, consultation notes, laboratory and imaging reports, and orders reviewed. Agree with plan of care as established by the previous provider. In addition, the patient's home medications have been reconciled and resumed; amlodipine, hydralazine, metoprolol, amlodipine and aspirin. Chest x-ray reveals cardiomegaly; will obtain echocardiogram. Have requested nursing monitor strict I&Os in addition to daily weights.
[2019-08-07 21:18] LABS: APPEARANCE,URINE CLEAR; BILIRUBIN,URINE NEGATIVE (NEGATIVE); COLOR,URINE YELLOW; GLUCOSE, URINE NEGATIVE (NEGATIVE); KETONES,URINE NEGATIVE (NEGATIVE); LEUKOCYTE ESTERASE,URINE NEGATIVE (NEGATIVE); NITRITE,URINE NEGATIVE (NEGATIVE); PROTEIN,URINE 100 mg/dL (NEGATIVE); URINE SPECIFIC GRAVITY 1.015; UROBILINOGEN,URINE NEGATIVE mg/dL (<2.0)
[2019-08-07] MEDS: HYDRALAZINE HCL 50 MG TABLET PO SCH (21:30)
[2019-08-07] MEDS: METOPROLOL TARTRATE 50 MG TABLET PO SCH (21:30)
[2019-08-07] MEDS: ATORVASTATIN CALCIUM 40 MG TABLET PO SCH (21:30)
--- NOTE | 2019-08-07 22:18 | RADIOLOGY REPORT (SQ) ---
EXAM: Ultrasound retroperitoneum limited CLINICAL INDICATION: Acute kidney injury COMPARISON: None available TECHNIQUE: Marcus scale sonography of the kidneys. FINDINGS: RIGHT KIDNEY: The right kidney measures 11.8 x 6.0 x 6.6 cm. No shadowing calculi or hydronephrosis is present. LEFT KIDNEY: The left kidney measures 12.6 x 5.8 x 5.3 cm. No shadowing calculi or hydronephrosis is present. OTHER: Bilateral ureteral jets are not visualized. This finding is nonspecific in nature. Urinary bladder volume, noted as prevoid, is measured as 21.8 mL. IMPRESSION: No hydronephrosis or nephrolithiasis visualized.
--- NOTE | 2019-08-08 00:25 | XCELERA REPORT ---
[address] [address] Transthoracic Echocardiogram Report Name: ASAEL KOENIG Age: 43 yrs Gender: Male : 1975 Patient Status: Inpatient Patient Location: [facility]^A Study Date: 08/07/2019 10:52 AM Height: 67 in Weight: 222 lb BSA: 2.1 m2 Reason For Study: ? CHF; cardiomegaly, peripheral edema Ordering Physician: CRYS FARAH Performed By: Renee Murphy Interpretation Summary The left ventricle is normal in size, thickness and function. There is mild concentric left ventricular hypertrophy. The Ejection Fraction estimate is 60-65%. Doppler measurements suggest normal left ventricular diastolic function. The left ventricular wall motion is normal. Mild LAE. Trace MR, trace TR. No prior studies for comparison. MMode/2D Measurements & Calculations RVDd: 3.2 cm LVIDd: 6.0 cm FS: 41.6 % Ao root diam: 2.7 cm IVSd: 1.2 cm LVIDs: 3.5 cm EDV(Teich): 179.7 ml LVPWd: 1.2 cm ESV(Teich): 51.0 ml Ao root area: 5.8 cm2 LA dimension: 4.5 cm EF(Teich): 71.6 % Doppler Measurements & Calculations MV E max rob: MV P1/2t max rob: Ao V2 max: LV V1 max P.4 cm/sec 124.4 cm/sec 191.4 cm/sec 6.9 mmHg MV A max rob: MV P1/2t: 62.4 msec Ao max PG: LV V1 max: 88.8 cm/sec MVA(P1/2t): 3.5 cm2 14.7 mmHg 131.8 cm/sec MV E/A: 1.4 MV dec slope: 584.1 cm/sec2 MV dec time: 0.20 sec PA V2 max: TR max rob: MV P1/2t-pr_phl: 95.3 cm/sec 268.8 cm/sec 62.4 msec PA max P.6 mmHgTR max P.9 mmHg Left Ventricle The left ventricle is normal in size, thickness and function. There is mild concentric left ventricular hypertrophy. The Ejection Fraction estimate is 60- 65%. Doppler measurements suggest normal left ventricular diastolic function. The left ventricular wall motion is normal. Right Ventricle The right ventricle is normal in size, thickness and function. The right ventricular systolic function is normal. Atria The right atrium is normal. The left atrium is mildly dilated. The interatrial septum is intact with no evidence for an atrial septal defect. Mitral Valve The mitral valve is normal in structure and function. There is a trace amount of mitral regurgitation. Aortic Valve The aortic valve is normal in structure and functions normally. No aortic regurgitation is present. Tricuspid Valve The tricuspid is normal in structure and function. There is a trace or physiologic amount of tricuspid regurgitation. Pulmonic Valve The pulmonic valve is not well seen, but is grossly normal. : CRYS FARAH Antonio
[2019-08-08] MEDS: PANTOPRAZOLE SODIUM 40 MG TABLET.DR PO SCH (05:27)
[2019-08-08] MEDS: HYDRALAZINE HCL 50 MG TABLET PO SCH ×3 (05:27→21:08)
[2019-08-08] MEDS: HEPARIN SOD (PORCINE) 5,000 UNIT/ML 1 ML VIAL SUBCUT SCH ×3 (05:27→21:08)
[2019-08-08 06:49] LABS: HEMATOCRIT 43.8 % (37.9-51.0); HEMOGLOBIN 15.2 g/dL (13.5-17.0); MEAN CORPUSCULAR HEMOGLOBIN 30.9 pg (27.0-33.4); MEAN CORPUSCULAR HGB CONC 34.6 g/dL (32.0-36.0); MEAN CORPUSCULAR VOLUME 89 fl (80-97); PLATELET COUNT 233 10^3/uL (150-450); RED BLOOD COUNT 4.91 10^6/uL (4.35-5.55); RED CELL DISTRIBUTION WIDTH 14.2 % (11.5-14.0); WHITE BLOOD COUNT 9.7 10^3/uL (4.0-10.5)
[2019-08-08 07:12] LABS: ANION GAP 8 (5-19); BLOOD UREA NITROGEN 19 mg/dL (7-20); CARBON DIOXIDE 25 mmol/L (22-30); CHLORIDE 105 mmol/L (98-107); GLUCOSE 109 mg/dL (75-110)
[2019-08-08] MEDS ORDERED: FUROSEMIDE 20 MG TABLET PO SCH (10:00)
[2019-08-08] MEDS ORDERED: AMLODIPINE BESYLATE 10 MG TABLET PO SCH (10:00)
[2019-08-08] MEDS: METOPROLOL TARTRATE 50 MG TABLET PO SCH (10:06)
[2019-08-08] MEDS: ASPIRIN 81 MG TABLET, CHEWABLE PO SCH (10:06)
[2019-08-08] MEDS: DOCUSATE SODIUM 100 MG CAPSULE PO SCH ×2 (10:07→17:09)
--- NOTE | 2019-08-08 12:25 | PDOC PROGRESS REPORT ---
Subjective Progress Note for:: 08/08/19 Subjective:: ASAEL KOENIG is a 43 year old male who presented the emergency room with a 3-day history of lower extremity edema. He admits gradually worsening edema of his bilateral lower extremities over the last 3 days becoming painful on 08/06/2019. His leg edema has been associated with anuria despite being started on Lasix by his primary care provider yesterday. He denies other associated or accompanying signs and symptoms. His pain is a constant moderately severe tightness/pressure in the bilateral lower extremities without radiation. He denies prior similar episodes. He has not identified any aggravating or ameliorating factors for his lower extremity edema. In the emergency room he was found to have a creatinine slightly elevated above his baseline and was noted to have 2+ edema of the bilateral lower extremities. He was subsequently admitted to the hospital for further evaluation and treatment. 08/08/2019. No acute events overnight. Patient currently resting in bed no apparent distress, alert and oriented x3, cooperative with physical examination, denies any fever, chills, nausea, vomiting, diarrhea, constipation or any urinary symptoms. Bilateral lower extremity edema improving. Reason For Visit: BILATERAL LOWER EXTREMITY EDEMA,ACUTE KIDNEY INJUR Physical Exam Vital Signs: Temp Pulse Resp BP Pulse Ox 98.3 F 88 17 162/97 H 97 08/08/19 12:00 08/08/19 12:00 08/08/19 12:00 08/08/19 12:00 08/08/19 12:00 Intake & Output 08/07/19 08/08/19 08/09/19 06:59 06:59 06:59 Intake Total 1500 1250 Output Total 1420 850 Balance 80 400 Weight 100.8 kg 100.5 kg General appearance: PRESENT: no acute distress, obese, well-developed, well- nourished Respiratory exam: PRESENT: clear to auscultation carito. ABSENT: rales, rhonchi, wheezes Cardiovascular exam: PRESENT: RRR. ABSENT: diastolic murmur, rubs, systolic murmur GI/Abdominal exam: PRESENT: normal bowel sounds, soft. ABSENT: distended, guarding, mass, organolmegaly, rebound, tenderness Extremities exam: PRESENT: +1 edema Neurological exam: PRESENT: alert, awake, oriented to person, oriented to place, oriented to time, oriented to situation, CN II-XII grossly intact. ABSENT: motor sensory deficit Skin exam: PRESENT: dry, intact, warm. ABSENT: cyanosis, rash Results Laboratory Results: 08/08/19 05:40 08/08/19 05:40 08/07/19 08/08/19 08/08/19 18:18 05:40 05:40 WBC 9.7 RBC 4.91 Hgb 15.2 Hct 43.8 MCV 89 MCH 30.9 MCHC 34.6 RDW 14.2 H Plt Count 233 Sodium 137.5 Potassium 4.0 Chloride 105 Carbon Dioxide 25 Anion Gap 8 BUN 19 Creatinine 1.69 H Est GFR ( Amer) 54 L Glucose 109 Calcium 9.0 Magnesium 2.0 Urine Color YELLOW Urine Appearance CLEAR Urine pH 6.0 Ur Specific [place] 1.015 Urine Protein 100 H Urine Glucose (UA) NEGATIVE Urine Ketones NEGATIVE Urine Blood NEGATIVE Urine Nitrite NEGATIVE Ur Leukocyte Esterase NEGATIVE Urine WBC (Auto) 0 Urine RBC (Auto) 1 08/07/19 08/07/19 08/07/19 00:13 03:15 03:15 Creatine Kinase 95 CK-MB (CK-2) 0.63 Troponin I 0.050 0.051 NT-Pro-B Natriuret Pep 163 H Impressions: Chest X-Ray 08/06/19 23:27 IMPRESSION: Stable cardiomegaly. No pneumonia or edema. Renal Ultrasound 08/07/19 00:00 IMPRESSION: No hydronephrosis or nephrolithiasis visualized. Assessment and Plan - Diagnosis (1) Acute kidney injury superimposed on CKD Is this a current diagnosis for this admission?: Yes Plan: Nonoliguric. Most likely due to chronic untreated hypertension. Baseline creatinine 2.0. Creatinine level improving. Denies any uremic symptoms. 08/08/2019. Renal ultrasound negative for any acute nephrosis or nephrolithiasis. Nephrology consulted. Recommendations noted. Monitor volume status. Monitor electrolytes. Monitor kidney function. Outpatient PCP and nephrology follow-up. (2) Bilateral lower extremity edema Is this a current diagnosis for this admission?: Yes Plan: Unlikely this is due to his CKD. Denies any history of cirrhosis. Denies history of CAD. Stable cardiomegaly likely due to untreated hypertension. This could be a combination of venous insufficiency and high-dose calcium channel blockers. 08/07/2019. 2D echo LVEF 60 to 65%. Normal diastolic function. Mild left atrial enlargement. Trace MR, trace TR. Right ventricle systolic function WNL. DC calcium channel blockers. Continue diuretics. Strict in and out. Advised on lower extremity elevation and compression stockings. (3) Elevated troponin Is this a current diagnosis for this admission?: Yes Plan: Likely due to hypertensive emergency in the setting of AILYN/CKD. Denies any anginal symptoms. 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 Does not report any limitation of physical activities. Cardiology consulted. Follow-up recommendation. (4) Hypertension Is this a current diagnosis for this admission?: Yes Plan: History of uncontrolled hypertension. Improving, not optimized. Continue hydralazine, beta-blockers diuretics. Could be started on ANTONIA/ARB in the future if kidney function stabilizes. DC amlodipine as it may be the cause of bilateral lower extremity edema and his constipation. Monitor vitals. Adjust meds as needed. (5) Hyperlipidemia Is this a current diagnosis for this admission?: Yes Plan: ASCVD score 16%. Diet and lifestyle modification recommended. TSH WNL. Continue high intensity statins. Outpatient PCP follow-up. Monitor LFTs. (6) Hypertensive urgency Is this a current diagnosis for this admission?: Yes Plan: Likely due to noncompliance. Presented with elevated troponins, acute on chronic kidney disease. Improving. Plan as per above. (7) Obesity (BMI 30.0-34.9) Is this a current diagnosis for this admission?: Yes Plan: TSH WNL. Hemoglobin A1c 6.1% at prediabetes level and abnormal lipid panel. Diet and lifestyle modification recommended.
[2019-08-08] MEDS: ATORVASTATIN CALCIUM 40 MG TABLET PO SCH (21:08)
[2019-08-08] MEDS ORDERED: METOPROLOL TARTRATE 100 MG TABLET PO SCH (22:00)
[2019-08-08] MEDS ORDERED: METOPROLOL TARTRATE 50 MG TABLET PO SCH (22:00)
[2019-08-09] MEDS: PANTOPRAZOLE SODIUM 40 MG TABLET.DR PO SCH (05:13)
[2019-08-09] MEDS: HYDRALAZINE HCL 50 MG TABLET PO SCH (05:16)
[2019-08-09] MEDS: HEPARIN SOD (PORCINE) 5,000 UNIT/ML 1 ML VIAL SUBCUT SCH ×2 (05:17→14:05)
[2019-08-09 06:34] LABS: HEMATOCRIT 43.5 % (37.9-51.0); HEMOGLOBIN 15.1 g/dL (13.5-17.0); MEAN CORPUSCULAR HEMOGLOBIN 31.2 pg (27.0-33.4); MEAN CORPUSCULAR HGB CONC 34.8 g/dL (32.0-36.0); MEAN CORPUSCULAR VOLUME 90 fl (80-97); PLATELET COUNT 235 10^3/uL (150-450); RED BLOOD COUNT 4.85 10^6/uL (4.35-5.55); RED CELL DISTRIBUTION WIDTH 14.2 % (11.5-14.0)
[2019-08-09 06:57] LABS: ANION GAP 8 (5-19); BLOOD UREA NITROGEN 21 mg/dL (7-20); CALCIUM 9.4 mg/dL (8.4-10.2); CARBON DIOXIDE 24 mmol/L (22-30); CHLORIDE 105 mmol/L (98-107); GLUCOSE 103 mg/dL (75-110); POTASSIUM 4.3 mmol/L (3.6-5.0)
--- NOTE | 2019-08-09 08:53 | PDOC CONSULTATION ---
Consultation Consult Date: 08/09/19 Attending physician:: VICKY SMILEY Provider Consulted: TERESE BINGHAM Consult reason:: Detectable troponin. History of Present Illness Admission Date/PCP: 08/07/19 02:18 [facility] History of Present Illness: ASAEL KOENIG is a 43 year old male with a longstanding history of uncontrolled and untreated hypertension, CKD, smoker of 2 packs/week since age 20 years who is consulted to our service for evaluation of a detectable troponin. He was admitted to the hospital because of progressive swelling of hi s legs with tightness for the last couple of weeks as well as elevated blood pressure. Of note the patient has been noncompliant with antihypertensive medications due to financial reasons but he just found a new job. He denies chest pain, shortness of breath, BRONSON, PND, palpitations, syncope and presyncope. He denies history of cardiovascular disease. The patient does admit to a high sodium diet. Physical exam on 08/09/2019: GENERAL: Pleasant and conversational. Oriented x3 with normal mood. Not in acute distress. Well groomed and well developed. HEENT: Normocephalic, atraumatic. Pupils equal. Sclerae anicteric. Oropharynx moist. NECK: No JVD. No carotid bruits. LUNGS: Clear to auscultation bilaterally. Normal respiratory effort without the use of accessory muscles or intercostal retractions. CARDIOVASCULAR: Regular rate and rhythm, normal S1 and S2 without murmurs, rubs, or gallops. PMI not displaced. ABDOMEN: No masses or tenderness to palpation. No bruit. No splenomegaly or hepatomegaly. No abdominal aorta bruit noted. EXTREMITIES: 2+ pitting edema bilaterally, no cyanosis, no clubbing. +2 pulses femoral and pedal pulses bilaterally. SKIN: No lesions or rashes. MUSCULOSKELETAL: No chest tenderness to palpation. NEUROLOGIC: Nonfocal. No gross sensory or motor deficits bilateral upper or lower extremities. Cardiac studies: Echocardiogram on 08/07/2019: -LV is normal in size. -Mild concentric LVH. -EF 60 to 65%. -Normal diastolic function. -Normal wall motion. -Mild LAE. -Trace MR, trace TR. Past Medical History Cardiac Medical History: Reports: Hyperlipidema, Hypertension Denies: Atrial Fibrillation, Congestive Heart Failure, Coronary Artery Disease, Myocardial Infarction Pulmonary Medical History: Denies: Asthma, Chronic Obstructive Pulmonary Disease (COPD) EENT Medical History: Denies: Cataracts, Ears - Hearing aids Neurological Medical History: Denies: Hemorrhagic CVA, Ischemic CVA, Seizures Endocrine Medical History: Reports: Obesity Denies: Diabetes Mellitus Type 1, Diabetes Mellitus Type 2, Hyperthyroidism, Hypothyroidism Renal/ Medical History: Reports: Chronic Kidney Disease, Nephrolithiasis Malignancy Medical History: Reports: None GI Medical History: Denies: Cirrhosis, Crohn's Disease, Hepatitis, Peptic Ulcer Disease, Ulcerative Colitis Musculoskeltal Medical History: Denies: Arthritis, Fibromyalgia, Gout Skin Medical History: Denies: Eczema, Psoriasis Psychiatric Medical History: Reports: Tobacco Dependency Denies: Alcohol Dependency, Depression, Substance Abuse Traumatic Medical History: Reports: None Hematology: Denies: Anemia, Bleeding Tendencies Infectious Medical History: Reports: None Past Surgical History Past Surgical History: Reports: None Social History Lives with: Spouse/Significant other Smoking Status: Current Every Day Smoker Cigarettes Packs Per Day: 0.3 Electronic Cigarette use?: No Number of Years Smokin Last Time Smoked: 08/06/2019 Frequency of Alcohol Use: Social Hx Recreational Drug Use: No Drugs: None Hx Prescription Drug Abuse: No - Advance Directive Resuscitation Status: Full Code Family History Family History: DM, Hyperlipidemia Parental Family History Reviewed: Yes Children Family History Reviewed: Yes Sibling(s) Family History Reviewed.: Yes Medication/Allergy Home Medications: Amlodipine Besylate [Norvasc 10 mg Tablet] 10 mg PO DAILY #30 tablet 04/18/19 Aspirin [Ecotrin 81 mg EC Tablet] 81 mg PO DAILY #30 tabec 04/18/19 Atorvastatin Calcium [Lipitor 40 mg Tablet] 40 mg PO QHS #30 tablet 04/18/19 Hydralazine HCl [Apresoline 50 mg Tablet] 100 mg PO Q8 #180 tablet 04/18/19 Metoprolol Tartrate [Lopressor 50 mg Tablet] 50 mg PO Q12 #60 tablet 04/18/19 Furosemide [Lasix 20 mg Tablet] 20 mg PO DAILY 08/07/19 Allergies/Adverse Reactions: No Known Allergies Allergy (Verified 12/05/16 07:19) Physical Exam Vital Signs: Temp Pulse Resp BP Pulse Ox 98.2 F 90 18 144/90 H 96 08/08/19 22:54 08/08/19 22:54 08/08/19 22:54 08/08/19 22:54 08/08/19 22:54 Intake & Output 08/07/19 08/08/19 08/09/19 06:59 06:59 06:59 Intake Total 1500 1250 1742 Output Total 1420 850 Balance 80 400 1742 Weight 100.8 kg 100.5 kg 119 kg Results Laboratory Results: 08/09/19 05:32 08/08/19 08/08/19 08/09/19 05:40 05:40 05:32 WBC 9.7 10.0 RBC 4.91 4.85 Hgb 15.2 15.1 Hct 43.8 43.5 MCV 89 90 MCH 30.9 31.2 MCHC 34.6 34.8 RDW 14.2 H 14.2 H Plt Count 233 235 Sodium 137.5 Potassium 4.0 Chloride 105 Carbon Dioxide 25 Anion Gap 8 BUN 19 Creatinine 1.69 H Est GFR ( Amer) 54 L Glucose 109 Calcium 9.0 Magnesium 2.0 08/07/19 08/07/19 08/07/19 00:13 03:15 03:15 Creatine Kinase 95 CK-MB (CK-2) 0.63 Troponin I 0.050 0.051 NT-Pro-B Natriuret Pep 163 H Impressions: Chest X-Ray 08/06/19 23:27 IMPRESSION: Stable cardiomegaly. No pneumonia or edema. Renal Ultrasound 08/07/19 00:00 IMPRESSION: No hydronephrosis or nephrolithiasis visualized. 08/09/19 05:32 MCV 90 fl (80-97) 08/09/19 05:32 MCH 31.2 pg (27.0-33.4) 08/09/19 05:32 MCHC 34.8 g/dL (32.0-36.0) 08/09/19 05:32 RDW 14.2 % (11.5-14.0) H 08/09/19 05:32 Seg Neutrophils % 71.9 % (42-78) 08/07/19 00:13 Chloride 105 mmol/L (98-107) 08/08/19 05:40 Carbon Dioxide 25 mmol/L (22-30) 08/08/19 05:40 Anion Gap 8 (5-19) 08/08/19 05:40 Est GFR ( Amer) 54 (>60) L 08/08/19 05:40 Glucose 109 mg/dL (75-110) 08/08/19 05:40 Calcium 9.0 mg/dL (8.4-10.2) 08/08/19 05:40 Magnesium 2.0 mg/dL (1.6-2.3) 08/08/19 05:40 Total Bilirubin 0.3 mg/dL (0.2-1.3) 08/07/19 00:13 AST 26 U/L (17-59) 08/07/19 00:13 Alkaline Phosphatase 98 U/L (38-126) 08/07/19 00:13 Total Protein 7.2 g/dL (6.3-8.2) 08/07/19 00:13 Albumin 4.2 g/dL (3.5-5.0) 08/07/19 00:13 Triglycerides 245 mg/dL (<150) H 08/07/19 04:49 Cholesterol 130.16 mg/dL (0-200) 08/07/19 04:49 LDL Cholesterol Direct 66 mg/dL (<100) 08/07/19 04:49 VLDL Cholesterol 49.0 mg/dL (10-31) H 08/07/19 04:49 HDL Cholesterol 32 mg/dL (>40) L 08/07/19 04:49 TSH 3.31 uIU/mL (0.47-4.68) 08/07/19 04:49 Urine Color YELLOW 08/07/19 18:18 Urine Appearance CLEAR 08/07/19 18:18 Urine pH 6.0 (5.0-9.0) 08/07/19 18:18 Ur Specific [place] 1.015 08/07/19 18:18 Urine Protein 100 mg/dL (NEGATIVE) H 08/07/19 18:18 Urine Glucose (UA) NEGATIVE mg/dL (NEGATIVE) 08/07/19 18:18 Urine Ketones NEGATIVE mg/dL (NEGATIVE) 08/07/19 18:18 Urine Blood NEGATIVE (NEGATIVE) 08/07/19 18:18 Urine Nitrite NEGATIVE (NEGATIVE) 08/07/19 18:18 Ur Leukocyte Esterase NEGATIVE (NEGATIVE) 08/07/19 18:18 Urine WBC (Auto) 0 /HPF 08/07/19 18:18 Urine RBC (Auto) 1 /HPF 08/07/19 18:18 08/07/19 08/07/1908/06/20 00:13 03:15 03:15 Creatine Kinase 95 CK-MB (CK-2) 0.63 Troponin I 0.050 0.051 NT-Pro-B Natriuret Pep 163 H Current Medication List Generic Name Dose Route Start Last Admin Trade Name Freq PRN Reason Stop Dose Admin Acetaminophen 650 mg 08/07/19 03:08 Tylenol 325 Mg Tablet PO 09/06/19 03:07 Q4HP PRN For headache, pain or fever Al Hydrox/Mg Hydrox/Simethicone 30 ml 08/07/19 03:00 Maalox Plus Susp 30 Udcup PO 09/06/19 02:59 Q6HP PRN HEARTBURN Aspirin 81 mg 08/08/19 10:00 08/08/19 10:06 Aspirin 81 Mg Chewable Tablet PO 09/07/19 09:59 81 mg DAILY ELSIE Administration Atorvastatin Calcium 40 mg 08/07/19 22:00 08/08/19 21:08 Lipitor 40 Mg Tablet PO 09/06/19 21:59 40 mg QHS ELSIE Administration Docusate Sodium 100 mg 08/07/19 10:00 08/08/19 17:09 Colace 100 Mg Capsule PO 09/06/19 09:59 Not Given BID ELSIE Furosemide 20 mg 08/08/19 10:00 08/08/19 10:06 Lasix 20 Mg Tablet PO 09/07/19 09:59 20 mg DAILY ELSIE Administration Guaifenesin 200 mg 08/07/19 03:08 Robitussin Syrup 200 Mg/10 Ml Ud Cup PO 09/06/19 03:07 Q4HP PRN COUGH Heparin Sodium (Porcine) 5,000 unit 08/07/19 06:00 08/09/19 05:17 Heparin Inj 5,000 Units/Ml 1 Ml Vial SUBCUT 09/06/19 05:59 Not Given Q8 ELSIE Hydralazine HCl 20 mg 08/07/19 03:08 Apresoline Inj/Pf 20 Mg/1 Ml Sdv IV 09/06/19 03:07 Q4HP PRN Give For Sbp > 160 / Dbp > 100 Hydralazine HCl 100 mg 08/07/19 22:00 08/09/19 05:16 Apresoline 50 Mg Tablet PO 09/06/19 21:59 100 mg Q8 ELSIE Administration Levalbuterol HCl 0.63 mg 08/07/19 03:00 Xopenex Neb 0.63 Mg/3 Ml Ampul NEB 09/06/19 02:59 RTQ2HP PRN SHORTNESS OF BREATH Magnesium Hydroxide 30 ml 08/07/19 03:00 Milk Of Magnesia 30 Ml Udcup PO 09/06/19 02:59 HSP PRN FOR CONSTIPATION Metoprolol Tartrate 5 mg 08/07/19 03:08 Lopressor Inj/Pf 5 Mg/5 Ml Sdv IV 09/06/19 03:07 Q4HP PRN Give For Sbp > 160 / Dbp > 100 Metoprolol Tartrate 100 mg 08/08/19 22:00 08/08/19 21:08 Lopressor 100 Mg Tablet PO 09/07/19 21:59 100 mg Q12 ELSIE Administration Nicotine 1 each 08/07/19 03:08 Nicoderm 21 Mg/24 Hr Transderm Patch TD 09/06/19 03:07 DAILYP PRN WITHDRAWAL SYMPTOMS Pantoprazole Sodium 40 mg 08/07/19 06:00 08/09/19 05:[address] Tablet PO 09/06/19 05:59 40 mg Q6AM ELSIE Administration Promethazine HCl 12.5 mg 08/07/19 03:00 Phenergan Inj 25 Mg/1 Ml Vial IV 09/06/19 02:59 Q4HP PRN FOR NAUSEA/VOMITING Sodium Chloride 2.5 ml 08/07/19 06:00 08/09/19 05:17 Saline Flush 2.5 Ml Monoject Prefil Syrin IV 09/06/19 05:59 2.5 ml Q8 ELSIE Administration Discontinued Medications Generic Name Dose Route Start Last Admin Trade Name Freq PRN Reason Stop Dose Admin Amlodipine Besylate 10 mg 08/08/19 10:00 08/08/19 12:35 Norvasc 10 Mg Tablet PO 09/07/19 09:59 Not Given DAILY ELSIE Aspirin 325 mg 08/07/19 01:42 08/07/19 02:38 Aspirin 325 Mg Tablet PO 08/07/19 01:43 325 mg NOW ONE Administration Bumetanide 2 mg 08/07/19 06:00 08/07/19 05:36 Bumex Inj/Pf 1 Mg/4 Ml Sdv IV 08/07/19 06:01 2 mg ONCE ONE Administration Furosemide 40 mg 08/07/19 01:41 08/07/19 02:38 Lasix Inj/Pf 40 Mg/4 Ml Sdv IV 08/07/19 01:42 40 mg NOW ONE Administration Lactated Ringer's 1,000 mls @ 250 mls/hr 08/07/19 03:00 08/07/19 05:37 Lactated Ringers 1000 Ml Iv Soln IV 250 mls/hr CONTINUOUS PRN Administration THIS MED IS NOT "PRN" Lactated Ringer's 1,000 mls @ 0 mls/hr 08/07/19 03:14 08/07/19 06:05 Lactated Ringers 1000 Ml Iv Soln IV 08/07/19 03:15 Infused BOLUS ONE Infusion Wide Open Lorazepam 1 mg 08/07/19 03:08 Ativan Inj 2 Mg/1 Ml Vial IV 08/14/19 03:07 Q4HP PRN ANXIETY/AGITATION Metoprolol Tartrate 50 mg 08/07/19 22:00 08/08/19 10:06 Lopressor 50 Mg Tablet PO 09/06/19 21:59 50 mg Q12 ELSIE Administration Morphine Sulfate 2 - 4 mg 08/07/19 03:08 Morphine 10 Mg/Ml Inj IV 08/14/19 03:07 Q2HP PRN See protocol Protocol Morphine Sulfate 2 mg 08/07/19 04:58 Morphine 10 Mg/Ml Inj IV 08/14/19 04:57 Q2HP PRN PAIN SCALE OF 2 Morphine Sulfate 3 mg 08/07/19 04:58 Morphine 10 Mg/Ml Inj IV 08/14/19 04:57 Q2HP PRN FOR PAIN SCALE 3-4 Morphine Sulfate 4 mg 08/07/19 04:59 Morphine 10 Mg/Ml Inj IV 08/14/19 04:58 Q2HP PRN PAIN SCALE OF 5 Assessment & Plan - Diagnosis (1) Elevated troponin Is this a current diagnosis for this admission?: Yes Plan: The patient has a cardiac troponin in the indeterminate range likely secondary to his hypertensive heart disease as well as LVH and chronic kidney disease. He denies ischemic symptoms even when he is active. Ideally he should stay in the hospital to get an inpatient ischemic assessment with exercise nuclear stress test however the patient declined this plan as he just started a new job and does not want to be fired from it. He was explained at length the importance of low-sodium diet as well as medication compliance. He agreed to be seen in our office by Dr. Javier to complete his cardiovascular work-up. Given that he is troponin has been flat in the absence of any ischemic symptoms or angina equivalents I believe the patient is safe to go home with outpatient cardiovascular work-up as long as he remains faithful to his low sodium diet/medications, quit smoking. (2) Hypertensive urgency Is this a current diagnosis for this admission?: Yes Plan: His blood pressure is improved this morning. He is now followed by nephrology. I will defer further management to the nephrology team. (3) CKD (chronic kidney disease), stage III Plan: The patient will continue to follow-up with nephrology. (4) Tobacco abuse Is this a current diagnosis for this admission?: Yes Plan: The patient was extensively counseled on the need to quit smoking immediately. He expressed his desire to quit. I will defer further management to the primary team.
[2019-08-09] MEDS: DOCUSATE SODIUM 100 MG CAPSULE PO SCH (09:33)
[2019-08-09] MEDS: ASPIRIN 81 MG TABLET, CHEWABLE PO SCH (09:34)
[2019-08-09] MEDS ORDERED: CARVEDILOL 12.5 MG TABLET PO SCH (10:00)
[2019-08-09] MEDS ORDERED: FUROSEMIDE 20 MG TABLET PO SCH (10:00)
[2019-08-09 10:15] LABS: URINE PROTEIN 262.6 mg/dL (<12)
[2019-08-09 12:12] VITALS: BP 135/77
[2019-08-09] MEDS ORDERED: HYDRALAZINE HCL 50 MG TABLET PO SCH (14:00)
--- NOTE | 2019-08-09 14:47 | PDOC DISCHARGE SUMMARY ---
Impression - Admit/DC Date/PCP Admission Date/Primary Care Provider: 08/07/19 02:18 [facility] Discharge Date: 08/09/19 - Discharge Diagnosis (1) Acute kidney injury superimposed on CKD Is this a current diagnosis for this admission?: Yes (2) Bilateral lower extremity edema Is this a current diagnosis for this admission?: Yes (3) Elevated troponin Is this a current diagnosis for this admission?: Yes (4) Hypertension Is this a current diagnosis for this admission?: Yes (5) Hyperlipidemia Is this a current diagnosis for this admission?: Yes (6) Hypertensive emergency Is this a current diagnosis for this admission?: Yes (7) Obesity (BMI 30.0-34.9) Is this a current diagnosis for this admission?: Yes - Additional Information Resuscitation Status: Full Code Referrals: [facility] [Primary Care Provider] - Follow up as needed TERESE BINGHAM MD [ACTIVE PROVISIONAL STAFF] - Malathi BECKHAM MD [ACTIVE STAFF] - Prescriptions: Aspirin [Adult Low Dose Aspirin EC] 81 mg PO DAILY 30 Days #30 tablet. Hydralazine HCl [Apresoline 50 mg Tablet] 50 mg PO TID 30 Days #90 tablet Carvedilol [Coreg] 2 tab PO Q12 30 Days #120 tab Rosuvastatin Calcium [Crestor] 10 mg PO QHS 30 Days #30 tablet Furosemide [Lasix] 20 mg PO BID 30 Days #60 tablet Home Medications: Aspirin [Adult Low Dose Aspirin EC] 81 mg PO DAILY 30 Days #30 tablet. 08/09/19 Carvedilol [Coreg] 2 tab PO Q12 30 Days #120 tab 08/09/19 Furosemide [Lasix] 20 mg PO BID 30 Days #60 tablet 08/09/19 Hydralazine HCl [Apresoline 50 mg Tablet] 50 mg PO TID 30 Days #90 tablet 08/09/19 Rosuvastatin Calcium [Crestor] 10 mg PO QHS 30 Days #30 tablet 08/09/19 History of Present Illiness History of Present Illness: ASAEL KOENIG is a 43 year old male who presented the emergency room with a 3-day history of lower extremity edema. He admits gradually worsening edema of his bilateral lower extremities over the last 3 days becoming painful on 08/06/2019. His leg edema has been associated with anuria despite being started on Lasix by his primary care provider yesterday. He denies other associated or accompanying signs and symptoms. His pain is a constant moderately severe tightness/pressure in the bilateral lower extremities without radiation. He denies prior similar episodes. He has not identified any aggravating or ameliorating factors for his lower extremity edema. In the emergency room he was found to have a creatinine slightly elevated above his baseline and was noted to have 2+ edema of the bilateral lower extremities. He was subsequently admitted to the hospital for further evaluation and treatment. Hospital Course Hospital Course: (1) Acute kidney injury superimposed on CKD Nonoliguric. Back to baseline. Denies any uremic symptoms. Most likely due to chronic untreated hypertension. Noted to have significant proteinuria. 08/08/2019. Renal ultrasound negative for any acute nephrosis or nephrolithiasis. Nephrology consulted. Recommendations noted. Patient is strongly advised to follow-up with PCP, nephrology and adhere to his medication. Patient voiced understanding. (2) Bilateral lower extremity edema Resolved. Urinalysis significant for moderate proteinuria. Unlikely this is due to his CKD. Denies any history of cirrhosis. Denies history of CAD. Stable cardiomegaly likely This could be a combination of venous insufficiency, high-dose calcium channel blockers and significant proteinuria likely caused by untreated chronic hypertension. 08/07/2019. 2D echo LVEF 60 to 65%. Normal diastolic function. Mild left atrial enlargement. Trace MR, trace TR. Right ventricle systolic function WNL. DC calcium channel blockers. Continued diuretics. Strict in and out. Advised on lower extremity elevation and compression stockings. Discharged on diuretics and advised to follow-up with photogrammetric stereo compiler and routing machine operator as outpatient. (3) Elevated troponin Likely due to hypertensive emergency in the setting of AILYN/CKD. Denies any anginal symptoms. 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 Does not report any limitation of physical activities. Cardiology consulted. Patient was advised to remain inpatient for further cardiac work-up however patient has mentioned that he cannot stay in the hospital as he may lose his job. Patient has agreed to follow-up with photogrammetric stereo compiler outpatient for further cardiac work-up. (4) Hypertension History of uncontrolled hypertension. Improving, not optimized. Could benefit from adjustment of his antihypertensive unfortunately patient is very anxious to leave the hospital as he thinks he might lose his job if he stays longer. Was discharged on hydralazine, beta-blockers and diuretics. Could be started on ANTONIA/ARB in the future if kidney function stabilizes. DCd amlodipine as it may be the cause of bilateral lower extremity edema and his constipation. (5) Hyperlipidemia ASCVD score 16%. Diet and lifestyle modification recommended. TSH WNL. Continued high intensity statins. Outpatient PCP follow-up. Monitor LFTs. Hold on Crestor 20 mg p.o. daily. Advised to follow-up with PCP for evaluation of his LFTs. (6) Hypertensive Emergency Likely due to noncompliance. Presented with elevated troponins, acute on chronic kidney disease. Resovled. Plan as per problem #4 (7) Obesity (BMI 30.0-34.9) TSH WNL. Hemoglobin A1c 6.1% at prediabetes level and abnormal lipid panel. Diet and lifestyle modification recommended. Physical Exam Vital Signs: Temp Pulse Resp BP Pulse Ox 97.4 F 81 17 135/77 H 98 08/09/19 12:00 08/09/19 12:00 08/09/19 12:00 08/09/19 12:00 08/09/19 12:00 Intake & Output 08/08/19 08/09/19 08/10/19 06:59 06:59 06:59 Intake Total 1250 1742 Output Total 850 Balance 400 1742 Weight 100.5 kg 119 kg General appearance: PRESENT: no acute distress, obese Eye exam: PRESENT: conjunctiva pink, EOMI, PERRLA. ABSENT: scleral icterus Respiratory exam: PRESENT: clear to auscultation carito. ABSENT: rales, rhonchi, wheezes Cardiovascular exam: PRESENT: RRR. ABSENT: diastolic murmur, rubs, systolic murmur GI/Abdominal exam: PRESENT: normal bowel sounds, soft. ABSENT: distended, guarding, mass, organolmegaly, rebound, tenderness Neurological exam: PRESENT: alert, awake, oriented to person, oriented to place, oriented to time, oriented to situation, CN II-XII grossly intact. ABSENT: motor sensory deficit Skin exam: PRESENT: dry, intact, warm. ABSENT: cyanosis, rash Results Laboratory Results: WBC 10.0 10^3/uL (4.0-10.5) 08/09/19 05:32 RBC 4.85 10^6/uL (4.35-5.55) 08/09/19 05:32 Hgb 15.1 g/dL (13.5-17.0) 08/09/19 05:32 Hct 43.5 % (37.9-51.0) 08/09/19 05:32 MCV 90 fl (80-97) 08/09/19 05:32 MCH 31.2 pg (27.0-33.4) 08/09/19 05:32 MCHC 34.8 g/dL (32.0-36.0) 08/09/19 05:32 RDW 14.2 % (11.5-14.0) H 08/09/19 05:32 Plt Count 235 10^3/uL (150-450) 08/09/19 05:32 Lymph % (Auto) 17.6 % (13-45) 08/07/19 00:13 [place] % (Auto) 8.0 % (3-13) 08/07/19 00:13 Eos % (Auto) 1.8 % (0-6) 08/07/19 00:13 Baso % (Auto) 0.7 % (0-2) 08/07/19 00:13 Absolute Neuts (auto) 8.0 10^3/uL (1.7-8.2) 08/07/19 00:13 Absolute Lymphs (auto) 2.0 10^3/uL (0.5-4.7) 08/07/19 00:13 Absolute Monos (auto) 0.9 10^3/uL (0.1-1.4) 08/07/19 00:13 Absolute Eos (auto) 0.2 10^3/uL (0.0-0.6) 08/07/19 00:13 Absolute Basos (auto) 0.1 10^3/uL (0.0-0.2) 08/07/19 00:13 Seg Neutrophils % 71.9 % (42-78) 08/07/19 00:13 Sodium 137.1 mmol/L (137-145) 08/09/19 05:32 Potassium 4.3 mmol/L (3.6-5.0) 08/09/19 05:32 Chloride 105 mmol/L (98-107) 08/09/19 05:32 Carbon Dioxide 24 mmol/L (22-30) 08/09/19 05:32 Anion Gap 8 (5-19) 08/09/19 05:32 BUN 21 mg/dL (7-20) H 08/09/19 05:32 Creatinine 1.79 mg/dL (0.52-1.25) H 08/09/19 05:32 Est GFR ( Amer) 51 (>60) L 08/09/19 05:32 Est GFR (MDRD) Non-Af 42 (>60) L 08/09/19 05:32 Glucose 103 mg/dL (75-110) 08/09/19 05:32 Calcium 9.4 mg/dL (8.4-10.2) 08/09/19 05:32 Magnesium 2.2 mg/dL (1.6-2.3) 08/09/19 05:32 Total Bilirubin 0.3 mg/dL (0.2-1.3) 08/07/19 00:13 Direct Bilirubin 0.1 mg/dL (0.0-0.4) 08/07/19 00:13 Neonat Total Bilirubin Not Reportable 08/07/19 00:13 Neonat Direct Bilirubin Not Reportable 08/07/19 00:13 Neonat Indirect Bili Not Reportable 08/07/19 00:13 AST 26 U/L (17-59) 08/07/19 00:13 ALT 27 U/L (<50) 08/07/19 00:13 Alkaline Phosphatase 98 U/L (38-126) 08/07/19 00:13 Creatine Kinase 95 U/L (55-170) 08/07/19 03:15 CK-MB (CK-2) 0.63 ng/mL (<4.55) 08/07/19 03:15 Troponin I 0.039 ng/mL 08/09/19 08:09 NT-Pro-B Natriuret Pep 163 pg/mL (<125) H 08/07/19 00:13 Total Protein 7.2 g/dL (6.3-8.2) 08/07/19 00:13 Albumin 4.2 g/dL (3.5-5.0) 08/07/19 00:13 Triglycerides 245 mg/dL (<150) H 08/07/19 04:49 Cholesterol 130.16 mg/dL (0-200) 08/07/19 04:49 LDL Cholesterol Direct 66 mg/dL (<100) 08/07/19 04:49 VLDL Cholesterol 49.0 mg/dL (10-31) H 08/07/19 04:49 HDL Cholesterol 32 mg/dL (>40) L 08/07/19 04:49 TSH 3.31 uIU/mL (0.47-4.68) 08/07/19 04:49 Urine Color YELLOW 08/07/19 18:18 Urine Appearance CLEAR 08/07/19 18:18 Urine pH 6.0 (5.0-9.0) 08/07/19 18:18 Ur Specific [place] 1.015 08/07/19 18:18 Urine Protein 100 mg/dL (NEGATIVE) H 08/07/19 18:18 Urine Glucose (UA) NEGATIVE mg/dL (NEGATIVE) 08/07/19 18:18 Urine Ketones NEGATIVE mg/dL (NEGATIVE) 08/07/19 18:18 Urine Blood NEGATIVE (NEGATIVE) 08/07/19 18:18 Urine Nitrite NEGATIVE (NEGATIVE) 08/07/19 18:18 Urine Bilirubin NEGATIVE (NEGATIVE) 08/07/19 18:18 Urine Urobilinogen NEGATIVE mg/dL (<2.0) 08/07/19 18:18 Ur Leukocyte Esterase NEGATIVE (NEGATIVE) 08/07/19 18:18 Urine WBC (Auto) 0 /HPF 08/07/19 18:18 Urine RBC (Auto) 1 /HPF 08/07/19 18:18 Urine Mucus (Auto) RARE /LPF 08/07/19 18:18 Urine Creatinine 118.0 mg/dL (22-328) 08/09/19 09:35 Urine Total Protein 262.6 mg/dL (<12) H 08/09/19 09:35 Urine Ascorbic Acid NEGATIVE (NEGATIVE) 08/07/19 18:18 08/07/19 08/07/19 08/09/19 00:13 03:15 08:09 CK-MB (CK-2) 0.63 Troponin I 0.050 0.051 0.039 NT-Pro-B Natriuret Pep 163 H Impressions: Chest X-Ray 08/06/19 23:27 IMPRESSION: Stable cardiomegaly. No pneumonia or edema. Renal Ultrasound 08/07/19 00:00 IMPRESSION: No hydronephrosis or nephrolithiasis visualized. Plan Time Spent: Greater than 30 Minutes Stroke Is this a Stroke Patient?: No Acute Heart Failure - Is this a Heart Failure Patient?: No
[2019-08-09] MEDS ORDERED: FUROSEMIDE 20 MG TABLET PO ONE (16:00)
== END 2019-08-09 16:51 | disposition home or self-care (01) | DRG 305 ==
LOC: ER 22:38 → EH 08-07 02:18 → 4N 08-07 03:45
PROVIDERS: ADMIT Emergency Medicine; ATTEND Registered Nurse
PROC: B24BZZ4 Ultrasonography of Heart with Aorta, Transesophageal (ICD-10-PCS; principal; 2019-08-08)
DX: I16.1 Hypertensive emergency (principal); N17.9 Acute kidney failure, unspecified; Z68.41 Body mass index [BMI] 40.0-44.9, adult; R79.89 Other specified abnormal findings of blood chemistry; E66.01 Morbid (severe) obesity due to excess calories; I12.9 Hypertensive chronic kidney disease with stage 1 through stage 4 chronic kidney disease, or unspecified chronic kidney disease; I16.0 Hypertensive urgency; E78.5 Hyperlipidemia, unspecified; R60.0 Localized edema; I08.1 Rheumatic disorders of both mitral and tricuspid valves; N18.3 Chronic kidney disease, stage 3 (moderate); E78.00 Pure hypercholesterolemia, unspecified; F17.210 Nicotine dependence, cigarettes, uncomplicated; Z79.899 Other long term (current) drug therapy; Z79.82 Long term (current) use of aspirin; Z91.14 Patient's other noncompliance with medication regimen; Z59.9 Problem related to housing and economic circumstances, unspecified
CPT/HCPCS: 36415; 71046; 76775; 80048; 80053; 80061; 81001; 82550; 82553; 82570; 83735; 83880; 84156; 84443; 84484; 85025; 85027; 93005; 93010; 93306; 99285; J1644; J1940; J3490; J7120

== ENCOUNTER 2019-08-15 07:51 | Emergency (ER) | payer SELFPAY ==
[2019-08-15 08:20] LABS: ABSOLUTE BASOPHILS # (AUTO) 0.1 10^3/uL (0.0-0.2); ABSOLUTE EOSINOPHILS # (AUTO) 0.1 10^3/uL (0.0-0.6); ABSOLUTE LYMPHOCYTES (AUTO) 1.5 10^3/uL (0.5-4.7); ABSOLUTE MONOCYTES (AUTO) 0.6 10^3/uL (0.1-1.4); ABSOLUTE NEUT (AUTO) 7.9 10^3/uL (1.7-8.2); BASOPHILS % (AUTO) 0.7 % (0-2); EOSINOPHILS % (AUTO) 1.3 % (0-6); HEMATOCRIT 42.3 % (37.9-51.0); HEMOGLOBIN 14.6 g/dL (13.5-17.0); LYMPHOCYTES % (AUTO) 14.5 % (13-45); MEAN CORPUSCULAR HEMOGLOBIN 30.9 pg (27.0-33.4); MEAN CORPUSCULAR HGB CONC 34.6 g/dL (32.0-36.0); MEAN CORPUSCULAR VOLUME 89 fl (80-97); MONOCYTES % (AUTO) 5.8 % (3-13); PLATELET COUNT 241 10^3/uL (150-450); RED BLOOD COUNT 4.73 10^6/uL (4.35-5.55); RED CELL DISTRIBUTION WIDTH 14.1 % (11.5-14.0); SEGMENTED NEUTROPHILS % (AUTO) 77.7 % (42-78); TOTAL CELLS COUNTED % (AUTO) 100 %; WHITE BLOOD COUNT 10.1 10^3/uL (4.0-10.5)
[2019-08-15 08:37] LABS: ALBUMIN 3.6 g/dL (3.5-5.0); ALKALINE PHOSPHATASE 93 U/L (38-126); ANION GAP 9 (5-19); ASPARTATE AMINO TRANSFERASE 20 U/L (17-59); BILIRUBIN,TOTAL 0.6 mg/dL (0.2-1.3); BLOOD UREA NITROGEN 20 mg/dL (7-20); CALCIUM 9.1 mg/dL (8.4-10.2); CARBON DIOXIDE 20 mmol/L (22-30); CHLORIDE 107 mmol/L (98-107); CREATINE KINASE 72 U/L (55-170); GLUCOSE 196 mg/dL (75-110); TOTAL PROTEIN 6.5 g/dL (6.3-8.2)
[2019-08-15 08:48] LABS: CREATINE KINASE MB 0.32 ng/mL (<4.55); TROPONIN I 0.024 ng/mL
--- NOTE | 2019-08-15 10:48 | ER Document Report ---
ED General - General Chief Complaint: Chest Pain Stated Complaint: CHEST PAIN Time Seen by Provider: 08/15/19 10:48 Primary Care Provider: [facility] [Primary Care Provider] - Follow up as needed Information source: Patient Notes: 43-year-old black male arrives by POV with his girlfriend driving. Patient used to take lisinopril and have no medical problem from this but he was placed on amlodipine for BP more than 1 week ago. Patient reports he was on amlodipine for blood pressure and last week came here because of leg edema. Leg edema as a side effect from this particular drug. He was taken off of this medication and placed on a different medication which he got from Drs. Townsend he took the first pill last night .. The pill tasted quite better to him and he had never been on this before ..and he woke today to go to the [employer]. He drove first to [employer] and ate and drank some Sprite. He has a history of borderline diabetes. Last night he had some V8 antioxidant juice for the first time.. He was standing in line at the [employer] when his vision got blurry he became sweaty he began to have left-sided chest pain. TRAVEL OUTSIDE OF THE [place] IN LAST 30 DAYS: No - HPI Onset: This morning Onset/Duration: Sudden, Better Quality of pain: Achy Severity: Mild Pain Level: 1 Associated symptoms: Nausea, Weakness Exacerbated by: Movement Relieved by: Remaining still Similar symptoms previously: No Recently seen / treated by doctor: No - Related Data Allergies/Adverse Reactions: No Known Allergies Allergy (Verified 08/15/19 07:57) Past Medical History - General Information source: Patient - Social History Smoking Status: Current Every Day Smoker Cigarette use (# per day): Yes Chew tobacco use (# tins/day): No Smoking Education Provided: Yes Frequency of alcohol use: Social Drug Abuse: None Lives with: Family Family History: Reviewed & Not Pertinent, DM, Hyperlipidemia Patient has suicidal ideation: No Patient has homicidal ideation: No - Past Medical History Cardiac Medical History: Reports: Hx Hypercholesterolemia, Hx Hypertension Denies: Hx Atrial Fibrillation, Hx Congestive Heart Failure, Hx Coronary Artery Disease, Hx Heart Attack Pulmonary Medical History: Denies: Hx Asthma, Hx COPD Neurological Medical History: Denies: Hx Seizures Endocrine Medical History: Denies: Hx Diabetes Mellitus Type 1, Hx Diabetes Mellitus Type 2, Hx Hyperthyroidism, Hx Hypothyroidism Renal/ Medical History: Denies: Hx Peritoneal Dialysis GI Medical History: Denies: Hx Cirrhosis, Hx Crohn's Disease, Hx Hepatitis, Hx Ulcerative Colitis Musculoskeletal Medical History: Denies Hx Arthritis, Denies Hx Fibromyalgia, Denies Hx Gout Skin Medical History: Denies Hx Eczema, Denies Hx Psoriasis Psychiatric Medical History: Denies: Hx Depression Infectious Medical History: Denies: Hx Hepatitis - Immunizations Immunizations up to date: Yes Hx Diphtheria, Pertussis, Tetanus Vaccination: Yes Review of Systems - Review of Systems Constitutional: See HPI, Malaise, Weakness EENT: No symptoms reported, Blurred vision Cardiovascular: See HPI, Chest pain Respiratory: No symptoms reported Gastrointestinal: No symptoms reported Genitourinary: No symptoms reported Male Genitourinary: No symptoms reported Musculoskeletal: No symptoms reported Skin: No symptoms reported Hematologic/Lymphatic: No symptoms reported Neurological/Psychological: See HPI, Weakness Physical Exam - Vital signs Vitals: Temp Pulse Resp BP Pulse Ox 97.8 F 77 24 H 72/41 L 94 08/15/19 08:06 08/15/19 08:06 08/15/19 08:06 08/15/19 08:06 08/15/19 08:06 Interpretation: Hypotensive - General General appearance: Alert - HEENT Head: Normocephalic, Atraumatic Eyes: Normal Pupils: PERRL Sinus: Normal Nasal: Normal Mouth/Lips: Normal Mucous membranes: Normal Pharynx: Normal Neck: Normal - Respiratory Respiratory status: No respiratory distress Chest status: Nontender Breath sounds: Normal Chest palpation: Normal - Cardiovascular Rhythm: Regular Heart sounds: Normal auscultation Murmur: No - Abdominal Inspection: Normal Distension: No distension Bowel sounds: Normal Tenderness: Nontender Organomegaly: No organomegaly - Rectal Hemorrhoids: Other - Genitourinary Scrotum: Other - deferred - Back Back: Normal - Extremities General upper extremity: Normal inspection General lower extremity: Normal inspection - Neurological Neuro grossly intact: Yes Cognition: Normal Orientation: AAOx4 Amelia Coma Scale Eye Opening: Spontaneous Amelia Coma Scale Verbal: Oriented Amelia Coma Scale Motor: Obeys Commands Amelia Coma Scale Total: 15 Speech: Normal Motor strength normal: LUE, RUE, LLE, RLE Sensory: Normal - Psychological Associated symptoms: Normal affect - Skin Skin Temperature: Warm Skin Moisture: Dry Course - Vital Signs Vital signs: Temp Pulse Resp BP Pulse Ox 97.8 F 72 10 L 121/86 H 97 08/15/19 08:06 08/15/19 11:29 08/15/19 12:16 08/15/19 12:16 08/15/19 12:16 - Laboratory Result Diagrams: 08/15/19 08:04 08/15/19 08:04 Laboratory results interpreted by me: 08/15/19 08/15/19 08:04 08:04 RDW 14.1 H Sodium 135.7 L Carbon Dioxide 20 L Creatinine 2.07 H Est GFR ( Amer) 43 L Est GFR (MDRD) Non-Af 36 L Glucose 196 H - Diagnostic Test Radiology reviewed: Reports reviewed - EKG Interpretation by Me EKG shows normal: Sinus rhythm Rate: Normal Rhythm: Other - LVH Critical Care Note - Critical Care Note Total time excluding time spent on procedures (mins): 90 Discharge - Discharge Clinical Impression: Medication side effect Hypotension Qualifiers: Hypotension type: unspecified hypotension type Qualified Code(s): I95.9 - Hypotension, unspecified Condition: Good Disposition: HOME, SELF-CARE Additional Instructions: Follow-up with personal doctor this week return to ER for emergencies take medicines as directed and encourage fluids and begin lisinopril tomorrow. Hold all blood pressure medicines today if possible. You have low blood pressure today. Prescriptions: Lisinopril/Hydrochlorothiazide [Lisinopril-Hctz 20-25 mg Tab] 1 each PO DAILY #30 tablet Referrals: [facility] [Primary Care Provider] - Follow up as needed
[2019-08-15 13:16] VITALS: BP 141/99
--- NOTE | 2019-08-15 22:05 | EKG REPORT ---
SEVERITY:- ABNORMAL ECG - SINUS RHYTHM PROBABLE LEFT ATRIAL ABNORMALITY LEFT VENTRICULAR HYPERTROPHY BORDERLINE T ABNORMALITIES, INFERIOR LEADS BORDERLINE PROLONGED QT INTERVAL : Confirmed by: Erica Garza 15-Aug-2019 22:04:51
== END 2019-08-15 13:16 | disposition home or self-care (01) ==
LOC: ER 07:51
DX: T46.1X5A Adverse effect of calcium-channel blockers, initial encounter (principal); I95.9 Hypotension, unspecified; R07.9 Chest pain, unspecified; I10 Essential (primary) hypertension; R11.0 Nausea; R53.1 Weakness; R53.81 Other malaise; X58.XXXA Exposure to other specified factors, initial encounter; Z79.899 Other long term (current) drug therapy; F17.210 Nicotine dependence, cigarettes, uncomplicated
CPT/HCPCS: 36415; 80053; 82550; 82553; 84484; 85025; 93005; 93010; 99291; 99292

== ENCOUNTER → 2020-01-08 | Outpatient (CLI) | payer SELFPAY ==
[2020-01-08 11:15] LABS: ABSOLUTE EOSINOPHILS # (AUTO) 0.2 10^3/uL (0.0-0.6); ABSOLUTE LYMPHOCYTES (AUTO) 2.4 10^3/uL (0.5-4.7); ABSOLUTE MONOCYTES (AUTO) 1.1 10^3/uL (0.1-1.4); ABSOLUTE NEUT (AUTO) 7.2 10^3/uL (1.7-8.2); BASOPHILS % (AUTO) 0.4 % (0-2); EOSINOPHILS % (AUTO) 2.2 % (0-6); LYMPHOCYTES % (AUTO) 22.2 % (13-45); MEAN CORPUSCULAR HEMOGLOBIN 31.6 pg (27.0-33.4); MEAN CORPUSCULAR HGB CONC 34.7 g/dL (32.0-36.0); MEAN CORPUSCULAR VOLUME 91 fl (80-97); MONOCYTES % (AUTO) 9.7 % (3-13); PLATELET COUNT 229 10^3/uL (150-450); RED BLOOD COUNT 5.38 10^6/uL (4.35-5.55); RED CELL DISTRIBUTION WIDTH 14.7 % (11.5-14.0); SEGMENTED NEUTROPHILS % (AUTO) 65.5 % (42-78); TOTAL CELLS COUNTED % (AUTO) 100 %; WHITE BLOOD COUNT 10.9 10^3/uL (4.0-10.5)
[2020-01-08 11:22] LABS: APPEARANCE,URINE CLEAR; BILIRUBIN,URINE NEGATIVE (NEGATIVE); COLOR,URINE YELLOW; GLUCOSE, URINE NEGATIVE (NEGATIVE); KETONES,URINE NEGATIVE (NEGATIVE); LEUKOCYTE ESTERASE,URINE NEGATIVE (NEGATIVE); NITRITE,URINE NEGATIVE (NEGATIVE); PROTEIN,URINE >=500 mg/dL (NEGATIVE); URINE SPECIFIC GRAVITY 1.019; UROBILINOGEN,URINE NEGATIVE mg/dL (<2.0)
[2020-01-08 11:42] LABS: ALBUMIN 4.4 g/dL (3.5-5.0); ALKALINE PHOSPHATASE 94 U/L (38-126); ANION GAP 10 (5-19); ASPARTATE AMINO TRANSFERASE 30 U/L (17-59); BILIRUBIN,DIRECT 0.2 mg/dL (0.0-0.4); BILIRUBIN,TOTAL 0.6 mg/dL (0.2-1.3); BLOOD UREA NITROGEN 21 mg/dL (7-20); CALCIUM 9.8 mg/dL (8.4-10.2); CARBON DIOXIDE 29 mmol/L (22-30); CHLORIDE 102 mmol/L (98-107); CHOLESTEROL 160.87 mg/dL (0-200); GLUCOSE 110 mg/dL (75-110); POTASSIUM 4.6 mmol/L (3.6-5.0); TOTAL PROTEIN 7.5 g/dL (6.3-8.2); TRIGLYCERIDES 220 mg/dL (<150); URIC ACID 10.5 mg/dL (3.5-8.5)
[2020-01-08 11:53] LABS: DIRECT LDL 93 mg/dL (<100)
== END ==
LOC: OD 10:10
PROVIDERS: ATTEND Family Medicine
DX: I12.9 Hypertensive chronic kidney disease with stage 1 through stage 4 chronic kidney disease, or unspecified chronic kidney disease (principal); N18.9 Chronic kidney disease, unspecified; E78.5 Hyperlipidemia, unspecified
CPT/HCPCS: 36415; 80053; 80061; 81001; 83036; 83735; 84443; 84550; 85025

== ENCOUNTER → 2020-03-16 | Outpatient (CLI) | payer OTHER ==
[2020-03-16 09:19] LABS: ABSOLUTE EOSINOPHILS # (AUTO) 0.2 10^3/uL (0.0-0.6); ABSOLUTE LYMPHOCYTES (AUTO) 1.8 10^3/uL (0.5-4.7); ABSOLUTE MONOCYTES (AUTO) 0.9 10^3/uL (0.1-1.4); BASOPHILS % (AUTO) 0.4 % (0-2); HEMATOCRIT 48.9 % (37.9-51.0); HEMOGLOBIN 16.8 g/dL (13.5-17.0); LYMPHOCYTES % (AUTO) 16.6 % (13-45); MEAN CORPUSCULAR HEMOGLOBIN 30.7 pg (27.0-33.4); MEAN CORPUSCULAR HGB CONC 34.3 g/dL (32.0-36.0); MEAN CORPUSCULAR VOLUME 90 fl (80-97); PLATELET COUNT 200 10^3/uL (150-450); RED BLOOD COUNT 5.46 10^6/uL (4.35-5.55); RED CELL DISTRIBUTION WIDTH 14.5 % (11.5-14.0); TOTAL CELLS COUNTED % (AUTO) 100 %; WHITE BLOOD COUNT 10.9 10^3/uL (4.0-10.5)
[2020-03-16 09:25] LABS: APPEARANCE,URINE CLEAR; BILIRUBIN,URINE NEGATIVE (NEGATIVE); COLOR,URINE YELLOW; GLUCOSE, URINE NEGATIVE (NEGATIVE); KETONES,URINE NEGATIVE (NEGATIVE); LEUKOCYTE ESTERASE,URINE NEGATIVE (NEGATIVE); NITRITE,URINE NEGATIVE (NEGATIVE); PROTEIN,URINE >=500 mg/dL (NEGATIVE); URINE SPECIFIC GRAVITY 1.022; UROBILINOGEN,URINE NEGATIVE mg/dL (<2.0)
[2020-03-16 09:42] LABS: ALBUMIN 4.1 g/dL (3.5-5.0); ALKALINE PHOSPHATASE 87 U/L (38-126); ANION GAP 10 (5-19); ASPARTATE AMINO TRANSFERASE 25 U/L (17-59); BILIRUBIN,DIRECT 0.2 mg/dL (0.0-0.4); BILIRUBIN,TOTAL 0.6 mg/dL (0.2-1.3); BLOOD UREA NITROGEN 22 mg/dL (7-20); CALCIUM 9.7 mg/dL (8.4-10.2); CARBON DIOXIDE 27 mmol/L (22-30); CHLORIDE 104 mmol/L (98-107); CHOLESTEROL 199.01 mg/dL (0-200); GLUCOSE 106 mg/dL (75-110); POTASSIUM 4.7 mmol/L (3.6-5.0); TOTAL PROTEIN 7.1 g/dL (6.3-8.2); TRIGLYCERIDES 265 mg/dL (<150); URIC ACID 8.5 mg/dL (3.5-8.5)
[2020-03-16 09:53] LABS: DIRECT LDL 98 mg/dL (<100)
== END ==
LOC: CCC 08:16
PROVIDERS: ATTEND Internal Medicine
DX: I12.9 Hypertensive chronic kidney disease with stage 1 through stage 4 chronic kidney disease, or unspecified chronic kidney disease (principal); N18.9 Chronic kidney disease, unspecified; E66.9 Obesity, unspecified
CPT/HCPCS: 36415; 80053; 80061; 81001; 83036; 84153; 84443; 84550; 85025